=== PATIENT | male | born 1970 | race African-American/Black ===

== ENCOUNTER 2021-06-29 16:15 | Outpatient (REF) | payer OTHER, SELFPAY ==
--- NOTE | ~2021-06-29 | US_ITS ---
EXAMINATION: US RETROPERITONEAL LIMITED (RENAL ONLY) CLINICAL INFORMATION: Calculus of kidney. COMPARISON: Ultrasound renal cysts 02/05/2020 and 05/22/2019 TECHNIQUE: Real-time imaging of the kidneys. FINDINGS: RIGHT KIDNEY: 11.3 x 6.6 x 4.9 cm (SAG x AP x TRV). The kidney is normal in size, contour, and echogenicity. Renal cortical thickness is normal. There is an 8 x 6 x 6 mm echogenic area in the mid right kidney that is stable. Appearance is questionable for an angiomyolipoma. No calculi. No hydronephrosis. LEFT KIDNEY: 11.0 x 6.3 x 5.2 cm (SAG x AP x TRV). The kidney is normal in size, contour, and echogenicity. There is left renal cortical thinning or scarring. There is an adjacent 6 mm echogenic focus with twinkle artifact and more peripheral hypoechoic area questionable for stone versus cyst with wall calcification. No hydronephrosis. US/US renal BI IMPRESSION: Stable 8 x 6 x 6 mm echogenic area in the mid right kidney questionable for an angiomyolipoma. Question 6 mm left upper pole stone versus cyst with wall calcification. Cortical thinning or scarring in the upper pole of the left kidney..
== END 2021-06-29 16:16 | disposition home or self-care (01) ==
LOC: HO.US 16:15
PROVIDERS: PCP Internal Medicine; Visit Provider Urology
DX: N20.0 Calculus of kidney (principal)
CPT/HCPCS: 76775

== ENCOUNTER → 2021-07-28 08:31 | Outpatient (BNVA) | payer OTHER, SELFPAY | PROVIDERS: PCP Internal Medicine; Visit Provider Urology ==

== ENCOUNTER 2021-08-26 07:38 | Outpatient (REF) | payer OTHER, SELFPAY ==
[2021-08-26 10:20] LABS: MANUAL DIFF FLAG NO
[2021-08-26 10:25] LABS: Basophils Absolute Auto 0.1 X10*3/uL (0.0-0.2); Eosinophils Absolute Auto 0.3 X10*3/uL (0.0-0.4); Eosinophils Percent Auto 3.9 % (0-4); Hematocrit 46.5 % (42.0-52.0); Imm Gran Abs Auto 0.01 X10*3/uL (0.00-0.03); Imm Gran Pct Auto 0.1 % (0.0-0.4); Lymphocytes Absolute Auto 2.7 X10*3/uL (1.2-4.9); Lymphocytes Percent Auto 33.9 % (20-40); Mean Corpuscular HGB Conc 34.4 g/dl (31.0-36.0); Mean Corpuscular Hemoglobin 29.5 pg (27.0-33.0); Mean Corpuscular Volume 85.6 fL (80.0-98.0); Mean Platelet Volume 11.1 fL (9.4-12.4); Monocytes Absolute Auto 0.6 X10*3/uL (0.1-1.2); Monocytes Percent Auto 7.8 % (2-11); Neutrophils Absolute Auto 4.2 x10*3/uL (2.0-8.3); Neutrophils Percent Auto 53.3 % (45-73); Platelet Count 272 X10*3/uL (160-400); Red Blood Count 5.43 X10*6/uL (4.60-5.80); Red Cell Distribution Width 13.2 % (11.0-16.0); White Blood Count 7.9 X10*3/uL (4.8-10.8)
[2021-08-26 10:40] LABS: Appearance Urine CLEAR; Color Urine YELLOW; Glucose Urine UA NEG (NEG); Leukocyte Esterase Urine NEG (NEG); Nitrite Urine NEG (NEG); Urine Blood NEG (NEG); Urine Ketones NEG (NEG); Urine Protein NEG (NEG-TRACE)
[2021-08-26 10:47] LABS: Alanine Aminotransferase 61 U/L (0-40); Albumin Level 4.1 g/dL (3.5-5.0); Alkaline Phosphatase 59 U/L (39-117); Anion Gap 13 (12-20); Aspartate Amino Transferase 34 U/L (5-37); Bilirubin Total 0.6 mg/dL (0.0-1.0); Blood Urea Nitrogen 15 mg/dL (9-16); Calcium 9.4 mg/dL (8.4-10.2); Carbon Dioxide 29 mmol/L (22-29); Chloride 99 mmol/L (96-108); Cholesterol 158 mg/dL; Estimated Glomerular Filt Rate > 60; Glucose Fasting 92 mg/dL (60-99); HDL Cholesterol 41 mg/dL; LDL Cholesterol Calculated 101 mg/dl; Sodium 138 mmol/L (135-145); Total Protein 7.1 g/dL (6.5-8.0); Triglycerides 82 mg/dL
[2021-08-26 11:11] LABS: Prostate Specific Antigen 0.38 ng/mL (<0.05-4.0); TSH reflex Free T4 1.17 uIU/mL (0.32-4.0); Vitamin D 25-OH Total 11.3 ng/mL (>30)
== END 2021-08-26 07:39 | disposition home or self-care (01) ==
LOC: HO.10HDL 07:38
PROVIDERS: Visit Provider Internal Medicine
DX: Z00.00 Encounter for general adult medical examination without abnormal findings (principal); E55.9 Vitamin D deficiency, unspecified; I10 Essential (primary) hypertension; E66.9 Obesity, unspecified
CPT/HCPCS: 36415; 80053; 80061; 81003; 82306; 84153; 84443; 85025

== ENCOUNTER 2021-10-27 08:28 | Outpatient (REF) | payer OTHER, SELFPAY ==
[2021-10-27 09:06] LABS: Binax Internal Control QC Valid; Binax Now Covid-19 Ag Positive (Negative)
== END 2021-10-27 08:29 | disposition home or self-care (01) ==
LOC: HO.LAB 08:28
PROVIDERS: Visit Provider Internal Medicine
DX: Z20.822 Contact with and (suspected) exposure to COVID-19 (principal)
CPT/HCPCS: C9803

== ENCOUNTER → 2022-01-13 13:46 | Outpatient (BNVA) | payer OTHER, SELFPAY | PROVIDERS: PCP Internal Medicine; Referring Provider Internal Medicine; Visit Provider Physician Assistant | DX: Z13.89 Encounter for screening for other disorder (principal) ==

== ENCOUNTER 2022-07-13 12:34 | Outpatient (REF) | payer OTHER, SELFPAY ==
--- NOTE | ~2022-07-13 | US_ITS ---
EXAMINATION: US RETROPERITONEAL LIMITED (RENAL ONLY) CLINICAL INFORMATION: Calculus of kidney. COMPARISON: Ultrasound retroperitoneal limited (renal only) 06/29/2021 and 02/05/2020. X-ray abdomen KUB 06/08/2016 and 02/10/2016. TECHNIQUE: Real-time imaging of the kidneys. FINDINGS: RIGHT KIDNEY: 11.6 x 6.2 x 4.5 cm (SAG x AP x TRV). The kidney is normal in size, contour, and echogenicity. Renal cortical thickness is normal. No hydronephrosis. Upper pole 0.5 cm calculus. There is also a hyperechoic structure at the midpole measuring 0.8 cm, likely an angiomyolipoma. This is unchanged. LEFT KIDNEY: 11.2 x 6.4 x 4.8 cm (SAG x AP x TRV). The kidney is normal in size, contour, and echogenicity. Renal cortical thickness is normal. No focal parenchymal lesions or hydronephrosis. Upper pole 0.5 cm calculus. US/US renal BI IMPRESSION: Nonobstructing bilateral renal calculi. 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
== END 2022-07-13 12:35 | disposition home or self-care (01) ==
LOC: HO.US 12:34
PROVIDERS: PCP Internal Medicine; Visit Provider Urology
DX: N20.0 Calculus of kidney (principal)
CPT/HCPCS: 76775

== ENCOUNTER → 2022-10-20 08:57 | Outpatient (BNVA) | payer OTHER, SELFPAY | PROVIDERS: PCP Internal Medicine; Visit Provider Physician Assistant | DX: Z01.818 Encounter for other preprocedural examination (principal) ==

== ENCOUNTER 2023-01-03 08:25 | Day surgery (SDC) | payer OTHER, SELFPAY ==
[2022-09-30 11:26] VITALS: BMI 31.9
[2022-12-28 14:02] VITALS: BMI 31.1
--- NOTE | 2023-01-02 11:52 | HO.ANESPROP2 ---
Documented by User: Rama Tran NP 01/02/23 11:52 HPI - Anesthesia Eval Consult details Narrative: 52yo M for Colonoscopy PMFSH Active Problems Active Problems: All Active Problems (Updated 10/20/22 @ 10:15 by Starla Yanez PA-C) Annual physical exam (Acute) Colon cancer screening (Acute) Elevated alanine aminotransferase (ALT) level (Acute) Angiomyolipoma (Acute) Vitamin D deficiency (Acute) Depression (Acute) Insomnia (Acute) Renal stone (Acute) Obesity (BMI 30-39.9) (Acute) Benign essential hypertension (Acute) Hypertension (Acute) Past Medical History Medical History Benign essential hypertension Depression History of COVID-19 Hypertension Insomnia Obesity (BMI 30-39.9) Renal stone Vitamin D deficiency Family History Family History Mother Hypertension Father Hypertension Surgical History Surgical History History of inguinal hernia repair Hx of colonoscopy Hx of lithotripsy Social History Social History Housing: House Alcohol intake: never Patient Tobacco Use Status: Never used Tobacco Second Hand Smoke Exposure: No Use of substances other than those prescribed or required for medical reasons: No Are you DNR?: No Advance Directives: No Advance Directives Information Provided: Yes service: No Current occupational status: employed Current occupation: maintenance Cognitive needs: No Hearing needs: No Vision needs: No Meds Allergies Allergy/AdvReac Type Severity Reaction Status Date / Time No Known Allergies Allergy Verified 09/21/22 13:10 [No Known Allergies*] Home Medications Medication Instructions Recorded Confirmed Last Taken Type trazodone 50 mg tablet 1 tab PO BEDTIME PRN insomnia 05/24/22 09/21/22 Unknown History Exam Exam Date and Time: January 02, 2023 1152 Height,Weight and Vital Signs: Height 5 ft 7 in Weight 90.265 kg Assessment and Plan Assessment Anesthesia Assessment: Chart Reviewed Documented by User: Tyesha Laguna MD 01/03/23 10:38 [facility] Past Medical History Medical History Benign essential hypertension Depression History of COVID-19 Hypertension Insomnia Obesity (BMI 30-39.9) Renal stone Vitamin D deficiency Family History Family History Mother Hypertension Father Hypertension Family history of problems with anesthesia: No Surgical History Surgical History History of inguinal hernia repair Hx of colonoscopy Hx of lithotripsy History of Problems with Anesthesia: No Social History Social History Housing: House Alcohol intake: never Patient Tobacco Use Status: Never used Tobacco Second Hand Smoke Exposure: No Use of substances other than those prescribed or required for medical reasons: No Are you DNR?: No Advance Directives: No Advance Directives Information Provided: Yes service: No Current occupational status: employed Current occupation: maintenance Cognitive needs: No Hearing needs: No Vision needs: No Meds Allergies Allergy/AdvReac Type Severity Reaction Status Date / Time No Known Allergies Allergy Verified 09/21/22 13:10 [No Known Allergies*] Home Medications Medication Instructions Recorded Confirmed Last Taken Type trazodone 50 mg tablet 1 tab PO BEDTIME PRN insomnia 05/24/22 09/21/22 Unknown History Exam Airway Mallampati Class: II Neck ROM: Full Loose/Missing/Broken Teeth: No Heart: rr Lungs: cta Assessment and Plan Assessment Anesthesia Assessment: Anesthesia Plan Discussed Final Anesthetic Review Family History of Problems with Anesthesia: No History of Problems with Anesthesia: No NPO: Yes ASA Class: II Final Preanesthetic Review: No Changes in Pt Med Stat, Meds/Allgs Chart Reviewed, Consent Obtained/Reviewed and Anes Risks/Benef Reviewed Patient Risk: Low Procedure Risk: Low Anesthetic Plan Anesthetic Plan: MAC: Disposition: Standard PACU
[2023-01-03 09:28] VITALS: BP 133/89; PULSE 66; RESP 18; TEMP 36.6; O2SAT 96
--- NOTE | 2023-01-03 09:42 | MHC.SHP ---
Pre-Procedural Eval Section A Date of Service: 01/03/23 Section B Chief Complaint: screening Relevant Family History (Specify if Yes): No Relevant Social History: None Present Medications: see Short Stay Collaborative assessment Medical History: Significant History (Benign essential hypertension Depression History of COVID-19 Hypertension Insomnia Obesity (BMI 30-39.9) Renal stone Vitamin D deficiency) History of Previous Operations: Relevant previous surgery/procedure and date(s) (History of inguinal hernia repair Hx of colonoscopy Hx of lithotripsy) Allergies: Allergies Allergy/AdvReac Type Severity Reaction Status Date / Time No Known Allergies Allergy Verified 09/21/22 13:10 [No Known Allergies*] Review of Systems Sugical H&P ROS: Negative: Constitution, Cardiovascular, Respiratory, Neurological, Psychiatric, Hem-Onc, Allergic/Immunologic, Gastrointestinal, Genitourinary, Musculoskeletal, Integumentary, Endocrine and Eyes/Ears/Nose/Throat Exam Surgical H&P Exam: Normal: HEENT, Normal: Heart, Normal: Lungs, Normal: Extremities, Normal: Abdomen, Normal: Skin and Normal: Neurological Plan Diagnosis/Plan: Unchanged I have reviewed the history and physical and performed a pertinent physical examination on my patient. No changes have occurred unless specified. Time Spent With Patient Time: Total time managing care of this patient today ____ minutes.
[2023-01-03] MEDS: Lactated Ringers 1,000 ML 100 ML IVCONT (09:57)
--- NOTE | 2023-01-03 10:30 | W.PM.OPN ---
Operative Note Operative Note Date of Service: 01/03/23 Narrative: Operative Information Procedure Description: Colonoscopy Indication: screening Anesthesia: MAC COLONOSCOPY Instrument: Olympus variable stiffness pediatric scope 190L Colonoscopy Monitoring: Vital signs and clinical assessment, continuous EKG monitoring, Pulse oximetry, Carbon Dioxide monitoring and blood pressure monitoring were done throughout the procedure. Colon withdrawal time was 16 minutes. Procedure: The patient was placed in the left lateral decubitis position and pre-procedure medications were administered. After a digital rectal examination of the ano-rectum, the video colonoscope was inserted into the rectum and advanced through the colon to the cecum/TI. The colonoscope was slowly withdrawn in a retrograde panoramic fashion and the colon mucosa was carefully examined including a retroflexed view of the rectum. Findings and interventions are described below. Procedure Difficulty: easy Findings: Terminal Ileum-normal Cecum: 6-7 mm sessile polyp removed with cold forceps Ascending Colon: several diverticula seen, 4-5 mm sessile polyp removed with cold forceps Transverse Colon -normal Descending Colon: moderate diverticulosis. 6-8 mm sessile polyp removed with cold forceps. 15 mm sausage shaped sessile polyp raised wt eleview and injected with few cc of epinephhrine then removed with hot snare with edges ablated. x 2 clips applied for closure of defect and polyp retrieved with net Sigmoid Colon: moderate severe diverticulosis Rectum: Retroflexion with medium sized internal hemorrhoids, grade I Anorectum - normal Colon preparation: [place] Bowel Preparation Scale Right colon; 2 Transverse colon: 2 Left colon; 1-2 (0 = Unprepared colon segment with mucosa not seen due to solid stool that cannot be cleared. 1 = Portion of mucosa of the colon segment seen, but other areas of the colon segment not well seen due to staining, residual stool and/or opaque liquid. 2 = Minor amount of residual staining, small fragments of stool and/or opaque liquid, but mucosa of colon segment seen well. 3 = Entire mucosa of colon segment seen well with no residual staining, small fragments of stool or opaque liquid) Impression and Post Procedure Diagnosis: polyps internal hemorrhoids diverticular disease Plan: High fiber diet leaflet Avoid straining at stool, epsom salts and sitz bath, anusol supps or cream Repeat Colonoscopy in 1-2 years or earlier if clinically indicated Above findings were reviewed with the patient and relevant handouts were provided if indicated.
[2023-01-03 10:43] VITALS: BP 104/69; PULSE 84; RESP 18; TEMP 36.1; O2SAT 94
[2023-01-03 10:58] VITALS: BP 109/79; PULSE 78; RESP 16; O2SAT 96
[2023-01-03 11:13] VITALS: BP 119/73; PULSE 55; RESP 16; TEMP 36.4; O2SAT 96
--- NOTE | 2023-01-03 13:31 | HO.ANESPROP2 ---
HPI - Anesthesia Eval Consult details Narrative: sreening PMFSH Active Problems Active Problems: All Active Problems (Updated 10/20/22 @ 10:15 by Starla Yanez PA-C) Annual physical exam (Acute) Colon cancer screening (Acute) Elevated alanine aminotransferase (ALT) level (Acute) Angiomyolipoma (Acute) Vitamin D deficiency (Acute) Depression (Acute) Insomnia (Acute) Renal stone (Acute) Obesity (BMI 30-39.9) (Acute) Benign essential hypertension (Acute) Hypertension (Acute) Past Medical History Medical History Benign essential hypertension Depression History of COVID-19 Hypertension Insomnia Obesity (BMI 30-39.9) Renal stone Vitamin D deficiency Family History Family History Mother Hypertension Father Hypertension Family history of problems with anesthesia: No Surgical History Surgical History History of inguinal hernia repair Hx of colonoscopy Hx of lithotripsy History of Problems with Anesthesia: No Social History Social History Housing: House Alcohol intake: never Patient Tobacco Use Status: Never used Tobacco Second Hand Smoke Exposure: No service: No Current occupational status: employed Current occupation: maintenance Cognitive needs: No Hearing needs: No Vision needs: No Meds Allergies Allergy/AdvReac Type Severity Reaction Status Date / Time No Known Allergies Allergy Verified 09/21/22 13:10 [No Known Allergies*] Home Medications Medication Instructions Recorded Confirmed Last Taken Type trazodone 50 mg tablet 1 tab PO BEDTIME PRN insomnia 05/24/22 09/21/22 Unknown History Exam Exam Date and Time: January 03, 2023 1331 Height,Weight and Vital Signs: Height 5 ft 7 in Weight 90.265 kg Last Vital Signs Temp 97.6 F 01/03/23 11:13 Pulse 55 01/03/23 11:13 Resp 16 01/03/23 11:13 BP 119/73 01/03/23 11:13 Pulse Ox 96 01/03/23 11:13 O2 Del Method 01/03/23 11:13 Airway Mallampati Class: II TM Dist: >3cm Neck ROM: Full Heart: rr Lungs: cta Assessment and Plan Final Anesthetic Review Family History of Problems with Anesthesia: No History of Problems with Anesthesia: No NPO: Yes ASA Class: I and II Final Preanesthetic Review: No Changes in Pt Med Stat, Meds/Allgs Chart Reviewed, Consent Obtained/Reviewed and Anes Risks/Benef Reviewed Patient Risk: Low Procedure Risk: Low Anesthetic Plan Anesthetic Plan: MAC: Disposition: Standard PACU
== END 2023-01-03 12:10 | disposition home or self-care (01) ==
PROVIDERS: PCP Internal Medicine; Visit Provider Internal Medicine Gastroenterology
PROC: 0DJD8ZZ Inspection of Lower Intestinal Tract, Via Natural or Artificial Opening Endoscopic (ICD-10-PCS; CPT 45378; principal; 2023-01-03 09:50)
DX: Z12.11 Encounter for screening for malignant neoplasm of colon (principal); D12.0 Benign neoplasm of cecum; D12.2 Benign neoplasm of ascending colon; D12.4 Benign neoplasm of descending colon; K57.30 Diverticulosis of large intestine without perforation or abscess without bleeding; K64.0 First degree hemorrhoids; I10 Essential (primary) hypertension; F32.A Depression, unspecified; E66.9 Obesity, unspecified; Z68.31 Body mass index [BMI] 31.0-31.9, adult; E55.9 Vitamin D deficiency, unspecified; G47.00 Insomnia, unspecified; Z79.899 Other long term (current) drug therapy; Z87.442 Personal history of urinary calculi
CPT/HCPCS: 45385; 45380; 45381; 88305; J0171

== ENCOUNTER 2023-02-25 10:33 | Emergency (ER) | payer OTHER, SELFPAY ==
--- NOTE | ~2023-02-25 | XR_ITS ---
EXAMINATION: XR CHEST CLINICAL INFORMATION: Chest pain COMPARISON: None available. TECHNIQUE: Frontal view of the chest was obtained. FINDINGS: The cardiac and mediastinal contours are stable. There is increased density at the left lung apex. This may be related to superimposition of bony structures, the left anterior first, posterior third ribs and left clavicle. The lungs are otherwise clear. No pleural effusion or pneumothorax. Bony structures are unremarkable. XR/XR chest 1V IMPRESSION: Increased density at the left lung apex, question related to overlapping bony structures. Follow-up apical lordotic view of the chest or chest CT recommended.
--- NOTE | 2023-02-25 07:29 | ECG_ITS ---
Test Reason : repeat Blood Pressure : / mmHG Vent. Rate : 047 BPM Atrial Rate : 047 BPM P-R Int : 144 ms QRS Dur : 076 ms QT Int : 404 ms P-R-T Axes : -19 -28 -28 degrees QTc Int : 357 ms Sinus bradycardia Minimal voltage criteria for LVH, may be normal variant ( R in aVL ) Nonspecific T wave abnormality Abnormal ECG When compared with ECG of 25-FEB-2023 10:35, Nonspecific T wave abnormality now evident in Lateral leads Referred By: Booker Chong Electronically Signed By:Erik Wilson
--- NOTE | 2023-02-25 10:35 | ECG_ITS ---
Test Reason : chest pain Blood Pressure : / mmHG Vent. Rate : 054 BPM Atrial Rate : 054 BPM P-R Int : 154 ms QRS Dur : 086 ms QT Int : 408 ms P-R-T Axes : 014 -24 -17 degrees QTc Int : 386 ms Sinus bradycardia Otherwise normal ECG No previous ECGs available Referred By: Generic ED Physician Electronically Signed By:ERIN STOVER
[2023-02-25 10:42] VITALS: BP 151/85; PULSE 56; RESP 18; TEMP 36.6; O2SAT 98; BMI 28.2
[2023-02-25 11:18] VITALS: PULSE 57
--- NOTE | 2023-02-25 11:30 | ED_ITS ---
HPI - Chest Pain General Chief Complaint: Chest Pain Stated Complaint: chest pain Time Seen by Provider: 02/25/23 10:53 Source: patient Mode of arrival: ambulatory Limitations: no limitations History of Present Illness HPI narrative: 52-year-old male came in for evaluation of chest pain. Chest pain started since yesterday, had 2 episode of chest pain each 1 lasts 5 minutes yesterday which is not exertional related, pain was described as dull aching pain to the left side of the chest with no radiation, no associated symptoms of SOB, today patient had very mild pension pain to the left side of the chest with no radiation no other associated symptoms. Related Data Home Medications Medication Instructions Recorded Confirmed trazodone 50 mg tablet 1 tab PO BEDTIME PRN insomnia 05/24/22 09/21/22 Previous Rx's Medication Instructions Recorded cholecalciferol (vitamin D3) 50 50 mcg PO DAILY 90 days #90 caps 09/29/21 mcg (2,000 unit) capsule bisacodyl 5 mg tablet,delayed 10 mg PO ONCE colonoscopy prep 1 10/20/22 release (Dulcolax (bisacodyl)) day #2 tabs polyethylene glycol 3350 17 238 g PO ONCE 1 day #238 grams 10/20/22 gram/dose oral powder (Miralax) chlorthalidone 50 mg tablet 50 mg PO QAM 3 months #30 tabs 01/22/23 Allergies Allergy/AdvReac Type Severity Reaction Status Date / Time No Known Allergies Allergy Verified 09/21/22 13:10 [No Known Allergies*] Review of Systems Review of Systems: All other systems are reviewed and are negative Constitutional: Reports as per HPI and Reports no additional constitutional complaints Eyes: Reports as per HPI and Reports no additional eye complaints Reports system reviewed and no additional complaints, except as documented Cardiovascular: Reports as per HPI and Reports no additional cardiovascular complaints Respiratory: Reports as per HPI and Reports no additional respiratory complaints Gastrointestinal: Reports as per HPI and Reports no additional gastrointestinal complaints Genitourinary: Reports no additional female genitourinary complaints Musculoskeletal: Reports no additional musculoskeletal complaints Skin/Breast: Reports system reviewed and no additional complaints, except as docu Psychiatric: Reports no additional psychiatric complaints Endocrine: Reports no additional endocrine complaints Hematologic/Lymphatic: Reports no additional hematologic/lymphatic complaints Allergic/Immunologic: Reports no additional allergic/immunologic complaints Reports system reviewed and no additional complaints, except as documented and Reports Abnormal speech present FORMERLY [facility], [facility] Past Medical History Medical History Benign essential hypertension Depression History of COVID-19 Hypertension Insomnia Obesity (BMI 30-39.9) Renal stone Vitamin D deficiency Surgical History History of inguinal hernia repair Hx of colonoscopy Hx of lithotripsy Family History Family History Mother Hypertension Father Hypertension Social History Social History Housing: House Alcohol intake: never Patient Tobacco Use Status: Never used Tobacco Smoked in Last 30 Days: No Second Hand Smoke Exposure: No Use of substances other than those prescribed or required for medical reasons: No Advance Directives: No Advance Directives Information Provided: Yes service: No Current occupational status: employed Current occupation: maintenance Cognitive needs: No Hearing needs: No Vision needs: No Physical Exam Vital Signs: Vital Signs: Last Vital Signs Temp 97.6 F 02/25/23 13:31 Pulse 51 02/25/23 13:31 Resp 15 02/25/23 13:31 BP 138/82 02/25/23 13:31 Pulse Ox 98 02/25/23 13:31 O2 Del Method Room Air 02/25/23 13:31 BMI result Body Mass Index 28.2 Vital signs have been reviewed as appeared to be correct. Blood pressure normal. Heart rate normal. Respiration rate normal. Temperature normal. Oxygen saturation normal. Appearance: Alert. Oriented X3. No acute distress. Head: Normal external exam. Normocephalic. Atraumatic. No Walker signs noted. No raccoon eyes noted Eyes: PERRLA. EOMI. Conjunctiva and sclera normal. Eyelids normal. ENT: TM's Normal. Pharynx normal. Uvula midline. Moist mucous membranes. No trismus noted. No drooling noted. No muffled voice noted. Neck: Normal inspection. Neck supple. FROM. No adenopathy. Thyroid Normal. No meningeal signs. No neck mass noted. CVS: Normal heart rate and rhythm. Heart sound normal. No murmurs noted. Pulses normal throughout. Respiratory: No respiratory distress. Painless inspiration. Breath sounds normal. No wheezes/rales/rhonchi noted. Chest nontender. No accessory muscle usage noted or decreased air movement noted. Abdomen: Soft and nontender. Bowel sounds normal in all 4 quadrants. No distention noted. No organomegaly noted. No visible injury noted. Back: No CVA tenderness. Full range of motion noted. Skin: Skin warm and dry. Normal skin color. Normal skin turgor. No rashes/lesions/lacerations noted. Extremities: No lower extremity edema. Extremities exhibit normal range of motion. Extremities nontender. Neuro: Oriented X 3. Cranial nerve exam: II-XII are grossly intact No motor deficit. No sensory deficit. Reflexes normal. Course Course Course Narrative: Intermittent chest pain since yesterday improving today, unremarkable labs, EKG is unremarkable. Will discharge to follow-up with PCP. Patient is bradycardic but patient is asymptomatic. Medical Decision Making Differential Diagnosis Differential Diagnoses: The differential diagnosis associated with the presentation includes (ACS, electrolyte abnormalities, anemia, myofascial pain, pneumonia, pneumothorax.) Admission/Observation Consideration of admission/observation: Escalation of care including admission/observation considered Lab Data MDM Lab Attestation statement: I reviewed the patient's lab results. 02/25/23 11:24 02/25/23 11:24 Labs: Lab Results 02/25/23 02/25/23 02/25/23 Range/Units 11:14 11:24 11:24 WBC 8.8 (4.8-10.8) X10*3/uL RBC 5.01 (4.60-5.80) X10*6/uL Hgb 15.0 (14.0-18.0) g/dl Hct 43.7 (42.0-52.0) % MCV 87.2 (80.0-98.0) fL MCH 29.9 (27.0-33.0) pg MCHC 34.3 (31.0-36.0) g/dl RDW 13.2 (11.0-16.0) % Plt Count 258 (160-400) X10*3/uL MPV 10.5 (9.4-12.4) fL Immature Gran % (Auto) 0.2 (0.0-0.4) % Neut % (Auto) 61.0 (45-73) % Lymph % (Auto) 25.6 (20-40) % [place] % (Auto) 8.9 (2-11) % Eos % (Auto) 3.6 (0-4) % Baso % (Auto) 0.7 (0-2) % Lymph # (Auto) 2.3 (1.2-4.9) X10*3/uL [place] # (Auto) 0.8 (0.1-1.2) X10*3/uL Eos # (Auto) 0.3 (0.0-0.4) X10*3/uL Baso # (Auto) 0.1 (0.0-0.2) X10*3/uL Abs Immat Gran (auto) 0.02 (0.00-0.03) X10*3/uL Absolute Neuts (auto) 5.4 (2.0-8.3) x10*3/uL Absolute Nucleated RBC 0.000 (0.0-0.012) X10*3/uL Nucleated RBC % (auto) 0.0 (0.0-0.2) /100WBC Sodium 139 (135-145) mmol/L Potassium 3.8 D (3.3-5.1) mmol/L Chloride 107 (96-108) mmol/L Carbon Dioxide 27 (22-29) mmol/L Anion Gap 9 L (12-20) BUN 12 (9-16) mg/dL Creatinine 0.84 (0.5-1.4) mg/dL Estim Creat Clear Calc 104.2 Estimated GFR > 60 Random Glucose 83 (60-115) mg/dL Calcium 9.3 (8.4-10.2) mg/dL Total Bilirubin (0.0-1.0) mg/dL Direct Bilirubin (0.0-0.5) mg/dL AST (5-37) U/L ALT (0-40) U/L Alkaline Phosphatase (39-117) U/L Troponin I High Sens (<3.5-35.0) ng/L Total Protein (6.5-8.0) g/dL Albumin (3.5-5.0) g/dL Lipase (8-78) U/L Urine Color Yellow Urine Appearance Clear Urine pH 7.0 (5.0-9.0) Ur Specific [place] 1.015 (1.005-1.025) Urine Protein Negative (Neg-Trace) mg/dL Urine Glucose (UA) Negative (Negative) mg/dL Urine Ketones Negative (Negative) mg/dL Urine Blood Negative (Negative) Urine Nitrite Negative (Negative) Ur Leukocyte Esterase Trace H (Negative) Urine RBC 0-2 (0-2) /HPF Urine WBC 0-5 (0-5) /HPF Ur Squamous Epith Cells 0-2 (0-2) /HPF Urine Bacteria None Seen (None Seen) Hyaline Casts 0-2 (0-2) /LPF 02/25/23 02/25/23 Range/Units 11:24 11:24 WBC (4.8-10.8) X10*3/uL RBC (4.60-5.80) X10*6/uL Hgb (14.0-18.0) g/dl Hct (42.0-52.0) % MCV (80.0-98.0) fL MCH (27.0-33.0) pg MCHC (31.0-36.0) g/dl RDW (11.0-16.0) % Plt Count (160-400) X10*3/uL MPV (9.4-12.4) fL Immature Gran % (Auto) (0.0-0.4) % Neut % (Auto) (45-73) % Lymph % (Auto) (20-40) % [place] % (Auto) (2-11) % Eos % (Auto) (0-4) % Baso % (Auto) (0-2) % Lymph # (Auto) (1.2-4.9) X10*3/uL [place] # (Auto) (0.1-1.2) X10*3/uL Eos # (Auto) (0.0-0.4) X10*3/uL Baso # (Auto) (0.0-0.2) X10*3/uL Abs Immat Gran (auto) (0.00-0.03) X10*3/uL Absolute Neuts (auto) (2.0-8.3) x10*3/uL Absolute Nucleated RBC (0.0-0.012) X10*3/uL Nucleated RBC % (auto) (0.0-0.2) /100WBC Sodium (135-145) mmol/L Potassium (3.3-5.1) mmol/L Chloride (96-108) mmol/L Carbon Dioxide (22-29) mmol/L Anion Gap (12-20) BUN (9-16) mg/dL Creatinine (0.5-1.4) mg/dL Estim Creat Clear Calc Estimated GFR Random Glucose (60-115) mg/dL Calcium (8.4-10.2) mg/dL Total Bilirubin 0.6 (0.0-1.0) mg/dL Direct Bilirubin 0.2 (0.0-0.5) mg/dL AST 25 (5-37) U/L ALT 39 (0-40) U/L Alkaline Phosphatase 59 (39-117) U/L Troponin I High Sens < 2.7 (<3.5-35.0) ng/L Total Protein 6.1 L (6.5-8.0) g/dL Albumin 3.7 (3.5-5.0) g/dL Lipase 31 (8-78) U/L Urine Color Urine Appearance Urine pH (5.0-9.0) Ur Specific [place] (1.005-1.025) Urine Protein (Neg-Trace) mg/dL Urine Glucose (UA) (Negative) mg/dL Urine Ketones (Negative) mg/dL Urine Blood (Negative) Urine Nitrite (Negative) Ur Leukocyte Esterase (Negative) Urine RBC (0-2) /HPF Urine WBC (0-5) /HPF Ur Squamous Epith Cells (0-2) /HPF Urine Bacteria (None Seen) Hyaline Casts (0-2) /LPF Independent Interpretation I performed an independent interpretation of an: Plain X-Ray (No acute intrathoracic pathology) Radiology Impression Discussion of test interpretation with radiology: I have reviewed the radiologist's reading. Scores Heart Score History: -0- slightly suspicious ECG: -0- normal Age: -1- >45 - <65 Risk factory: -1- 1 or 2 risk factors Troponin: -0- < or = normal limit Score: 2 Risk: 1.7% Discharge Plan Discharge Clinical Impression: Chest pain, Bradycardia Patient Disposition: Home, Self-Care Instructions: Chest Pain (ED) Prescriptions: No Action chlorthalidone 50 mg tablet 50 mg PO QAM 90 Days Qty: 30 0RF trazodone 50 mg tablet 1 tab PO BEDTIME PRN (Reason: insomnia) cholecalciferol (vitamin D3) 50 mcg (2,000 unit) capsule 50 mcg PO DAILY 90 Days Qty: 90 3RF bisacodyl [Dulcolax (bisacodyl)] 5 mg tablet,delayed release (DR/EC) 10 mg PO ONCE 1 Days Qty: 2 0RF Rx Instructions: Take 2 tablets by mouth at 12:00pm the day before your procedure. polyethylene glycol 3350 [Miralax] 17 gram/dose powder 238 g PO ONCE 1 Days Qty: 238 0RF Rx Instructions: Take as directed by mouth the day before your procedure. Referrals: Harry Cooper MD [Primary Care Provider] -
[2023-02-25 11:33] LABS: MANUAL DIFF FLAG NO
[2023-02-25 11:35] LABS: Basophils Absolute Auto 0.1 X10*3/uL (0.0-0.2); Basophils Percent Auto 0.7 % (0-2); Eosinophils Absolute Auto 0.3 X10*3/uL (0.0-0.4); Eosinophils Percent Auto 3.6 % (0-4); Hematocrit 43.7 % (42.0-52.0); Imm Gran Abs Auto 0.02 X10*3/uL (0.00-0.03); Imm Gran Pct Auto 0.2 % (0.0-0.4); Lymphocytes Absolute Auto 2.3 X10*3/uL (1.2-4.9); Lymphocytes Percent Auto 25.6 % (20-40); Mean Corpuscular HGB Conc 34.3 g/dl (31.0-36.0); Mean Corpuscular Hemoglobin 29.9 pg (27.0-33.0); Mean Corpuscular Volume 87.2 fL (80.0-98.0); Mean Platelet Volume 10.5 fL (9.4-12.4); Monocytes Absolute Auto 0.8 X10*3/uL (0.1-1.2); Monocytes Percent Auto 8.9 % (2-11); Neutrophils Absolute Auto 5.4 x10*3/uL (2.0-8.3); Platelet Count 258 X10*3/uL (160-400); Red Blood Count 5.01 X10*6/uL (4.60-5.80); Red Cell Distribution Width 13.2 % (11.0-16.0); White Blood Count 8.8 X10*3/uL (4.8-10.8)
[2023-02-25 11:44] LABS: Appearance Urine Clear; Color Urine Yellow; Glucose Urine UA Negative (Negative); Leukocyte Esterase Urine Trace (Negative); Nitrite Urine Negative (Negative); Specific Gravity - Urine 1.015 (1.005-1.025); UMIC TRIGGER UACC YES; Urine Blood Negative (Negative); Urine Ketones Negative (Negative); Urine Protein Negative (Neg-Trace)
[2023-02-25 11:49] LABS: Anion Gap 9 (12-20); Blood Urea Nitrogen 12 mg/dL (9-16); Calcium 9.3 mg/dL (8.4-10.2); Carbon Dioxide 27 mmol/L (22-29); Chloride 107 mmol/L (96-108); Creatinine Clr Calc Pharmacy 104.2; Estimated Glomerular Filt Rate > 60; Glucose Random 83 mg/dL (60-115); Potassium 3.8 mmol/L (3.3-5.1); Sodium 139 mmol/L (135-145)
[2023-02-25 11:50] LABS: Alanine Aminotransferase 39 U/L (0-40); Albumin Level 3.7 g/dL (3.5-5.0); Alkaline Phosphatase 59 U/L (39-117); Aspartate Amino Transferase 25 U/L (5-37); Bilirubin Direct 0.2 mg/dL (0.0-0.5); Bilirubin Total 0.6 mg/dL (0.0-1.0); Lipase 31 U/L (8-78); Total Protein 6.1 g/dL (6.5-8.0)
[2023-02-25 11:52] LABS: Bacteria Urine None Seen (None Seen); Hyaline Casts Urine 0-2 /LPF (0-2); RBC Urine 0-2 /HPF (0-2); Squamous Epithelial Cell Urine 0-2 /HPF (0-2); WBC Urine 0-5 /HPF (0-5)
[2023-02-25 12:00] LABS: Troponin-I High Sensitivity < 2.7 ng/L (<3.5-35.0)
[2023-02-25 13:31] VITALS: BP 138/82; PULSE 51; RESP 15; TEMP 36.4; O2SAT 98
== END 2023-02-25 15:18 | disposition home or self-care (01) ==
PROVIDERS: Emergency Provider Emergency Medicine; PCP Internal Medicine
DX: R07.9 Chest pain, unspecified (principal); R00.1 Bradycardia, unspecified; I10 Essential (primary) hypertension; Z79.899 Other long term (current) drug therapy
CPT/HCPCS: 36415; 71045; 80048; 80076; 81001; 83690; 84484; 85025; 93005; 99283; 99285

== ENCOUNTER 2023-06-07 20:51 | Emergency (ER) | payer OTHER, SELFPAY | END 2023-06-07 22:09 | disposition left against medical advice (07) | PROVIDERS: Emergency Provider Emergency Medicine; PCP Internal Medicine | DX: M79.602 Pain in left arm (principal) ==

== ENCOUNTER 2023-06-19 20:48 | Emergency (ER) | payer OTHER, SELFPAY ==
--- NOTE | 2023-06-19 | ECG_ITS ---
Test Reason : cp Blood Pressure : / mmHG Vent. Rate : 068 BPM Atrial Rate : 068 BPM P-R Int : 150 ms QRS Dur : 084 ms QT Int : 410 ms P-R-T Axes : 024 -29 -20 degrees QTc Int : 435 ms Normal sinus rhythm Minimal voltage criteria for LVH, may be normal variant ( R in aVL ) Septal infarct , age undetermined Abnormal ECG When compared with ECG of 25-FEB-2023 14:40, Septal infarct is now Present T wave inversion no longer evident in Anterior leads QT has lengthened Referred By: Generic ED Physician Electronically Signed By:MARY ELLEN GUTIERREZ
--- NOTE | ~2023-06-19 | XR_ITS ---
EXAMINATION: XR CHEST CLINICAL INFORMATION: Chest pain. COMPARISON: 12/26/2022 TECHNIQUE: 2 views of the chest were obtained. FINDINGS: The cardiomediastinal silhouette is stable. Minimal left perihilar/upper lung field scarring is again seen. There is no focal lung consolidation or evidence for significant pleural effusion. XR/XR chest 2V IMPRESSION: No active cardiopulmonary disease. No significant interval change
[2023-06-19 20:53] VITALS: BP 182/113; PULSE 65; RESP 18; TEMP 36.8; O2SAT 97; BMI 29.0
--- NOTE | 2023-06-19 20:53 | ED.GENADULT ---
[facility] - General Adult General Chief complaint: Chest Pain Stated complaint: Chest Pain Time Seen by Provider: 06/20/23 00:05 Source: patient Mode of arrival: ambulatory History of Present Illness HPI narrative: 53-year-old male without significant past medical history and denies any use of alcohol/drugs and denies any smoking, but does report that he has high blood pressure and has been off of his medication for 4 days. Patient states that he was at the gym working out and afterwards began experiencing chest pressure not associated with deep inspiration or movement and denies any associated nausea/dizziness/shortness of breath/diaphoresis. Patient denies that the pain radiates. Related Data Home Medications Medication Instructions Recorded Confirmed trazodone 50 mg tablet 1 tab PO BEDTIME PRN insomnia 05/24/22 09/21/22 Previous Rx's Medication Instructions Recorded cholecalciferol (vitamin D3) 50 50 mcg PO DAILY 90 days #90 caps 09/29/21 mcg (2,000 unit) capsule bisacodyl 5 mg tablet,delayed 10 mg PO ONCE colonoscopy prep 1 10/20/22 release (Dulcolax (bisacodyl)) day #2 tabs polyethylene glycol 3350 17 238 g PO ONCE 1 day #238 grams 10/20/22 gram/dose oral powder (Miralax) chlorthalidone 50 mg tablet 50 mg PO QAM 3 months #30 tabs 04/15/23 Allergies Allergy/AdvReac Type Severity Reaction Status Date / Time No Known Allergies Allergy Verified 06/19/23 20:56 [No Known Allergies*] Review of Systems Review of Systems: Pertinent positives and negatives as stated in HPI [facility] Past Medical History Source: nursing notes reviewed Medical History Benign essential hypertension Depression History of COVID-19 Hypertension Insomnia Obesity (BMI 30-39.9) Renal stone Vitamin D deficiency Surgical History History of inguinal hernia repair Hx of colonoscopy Hx of lithotripsy Family History Family History Mother Hypertension Father Hypertension Social History Social History Housing: House Alcohol intake: never Patient Tobacco Use Status: Never used Tobacco Smoked in Last 30 Days: No Second Hand Smoke Exposure: No Advance Directives: No Advance Directives Information Provided: Yes service: No Current occupational status: employed Current occupation: maintenance Cognitive needs: No Hearing needs: No Vision needs: No Physical Exam ED Vital Signs: Vital Signs - 24 hr 06/19/23 20:53 06/20/23 00:11 06/20/23 04:00 Temperature 98.2 F 97.8 F Pulse Rate 65 54 48 L Respiratory Rate 18 18 16 Blood Pressure 182/113 H 161/92 H 141/93 H Pulse Oximetry 97 98 96 Oxygen Delivery Method Room Air Room Air Room Air BMI result Body Mass Index 30.0 VITAL SIGNS: Reviewed. GENERAL: Well developed, well nourished, in no acute distress. HEAD: Normocephalic/atraumatic EYES: PERRLA, EOMI EARS: Ext canals without abnormality NOSE: Nares patent bilateral OROPHARYNX: no oral lesions noted, posterior pharynx clear NECK: Supple, no adenopathy LUNGS: Normal breath sounds. No adventitious sounds or accessory muscle use. SpO2<98> CARDIOVASCULAR: Regular rate and rhythm without noted murmurs ABDOMEN: Soft, non-tender, non-distended with bowel sounds. MUSCULOSKELETAL: No tenderness, deformities, or effusions noted on gross inspection. EXTREMITIES: No cyanosis, clubbing or edema. SKIN: Inspection of the skin reveals no rashes NEUROLOGIC: Alert and oriented x 4. Strength and sensation to light touch were grossly intact x 4. Course Course Course Narrative: This is a rapid medical exam: Additional HPI, ROS, PE not included below will be deferred to primary provider. Patient is a 53-year-old male with history of HTN presenting to the emergency department with complaint of chest pain since around 3:00 p.m. after working out at the gym. Also complains of pressure in chest. States he feels as though his blood pressure is high. Reports mild headache, denies vision changes. BP 182/113 in triage, states he is not on any BP medications. Plan: EKG, labs, CXR Medications Administered Generic Name Dose Route Start Last Admin Trade Name Freq PRN Reason Stop Dose Admin Heparin Sodium/Sodium Chloride 25,000 unit in 250 mls @ 0 mls/hr 06/20/23 03:30 06/20/23 04:13 Heparin Sodium,Porcine/1/2ns IVCONT 11.87 units/kg/hr .Q0M CLIFTON 10 mls/hr Administration Protocol Per Protocol Discontinued Medications Generic Name Dose Route Start Last Admin Trade Name Hillary PRN Reason Stop Dose Admin Aspirin 324 mg 06/20/23 03:25 06/20/23 03:36 Aspirin 81 Mg Tab.Chew PO 06/20/23 03:26 324 mg ONCE ONE Administration Ticagrelor 180 mg 06/20/23 03:25 06/20/23 03:36 Ticagrelor 90 Mg Tablet PO 06/20/23 03:26 180 mg ONCE ONE Administration Medical Decision Making Medical Decision Making MDM Narrative: 53-year-old male with history and clinical presentation, DDX: Musculoskeletal, angina, ACS, less likely viral syndrome or pneumonia. I reviewed all investigations and hematologic indices are grossly within normal limits, there is no leukocytosis or left shift, no anemia or thrombocytopenia. Chemistry indices are negative for ABDIFATAH and electrolyte as well as liver enzymes are without abnormalities, initial high sensitivity troponin is detectable, however in the setting of uncontrolled hypertension I do feel that there may be a component of leak from that although patient does still express chest pressure but otherwise asymptomatic. Will repeat the troponin. Chest x-ray without infiltrate and otherwise my interpretation is in agreement with radiology's impression. EKG negative for STEMI. 0305: I received a call from lab and reports that patient has high sensitivity troponin is 351.8. 0307: Reach out to Dr. Wilson. 0309: Repeat EKG demonstrates some T-wave abnormalities within the anterolateral leads, will discuss this with Dr. Wilson 0323: Cardiology recommends discussion with interventional at [facility], they have been contacted. Also recommend aspirin, Brilinta, heparin. 0406: Still no contact from [facility]. 0418: Dr. Magdalena Curry called and accepts admission as a documentum consultant to the cardiac telemetry floor and agrees with aspirin/Brilinta/heparin. 0502: I discussed case with [employer] hospitalist Jed at [facility]. Differential Diagnosis Differential Diagnoses: The differential diagnosis associated with the presentation includes Please see the discussion above Admission/Observation Consideration of admission/observation: Escalation of care including admission/observation considered Please see the discussion above Consult Healthcare Provider Management of the patient was discussed with: Operating System Designer Please see the discussion above Lab Data [facility] Lab Attestation statement: I reviewed the patient's lab results. Please see the discussion above 06/19/23 20:59 06/19/23 20:59 Labs: Lab Results 06/19/23 06/19/23 06/19/23 Range/Units 20:59 20:59 20:59 WBC 9.4 (4.8-10.8) X10*3/uL RBC 5.31 (4.60-5.80) X10*6/uL Hgb 15.8 (14.0-18.0) g/dl Hct 46.2 (42.0-52.0) % MCV 87.0 (80.0-98.0) fL MCH 29.8 (27.0-33.0) pg MCHC 34.2 (31.0-36.0) g/dl RDW 13.1 (11.0-16.0) % Plt Count 273 (160-400) X10*3/uL MPV 10.4 (9.4-12.4) fL Absolute Nucleated RBC 0.000 (0.0-0.012) X10*3/uL Nucleated RBC % (auto) 0.0 (0.0-0.2) /100WBC PT (11.1-13.3) SEC INR (0.9-1.1) APTT (26.0-36.4) SEC Sodium 139 (135-145) mmol/L Potassium 4.1 (3.3-5.1) mmol/L Chloride 104 (96-108) mmol/L Carbon Dioxide 28 (22-29) mmol/L Anion Gap 11 L (12-20) BUN 17 H (9-16) mg/dL Creatinine 0.87 (0.5-1.4) mg/dL Estim Creat Clear Calc 100.7 Estimated GFR > 60 Random Glucose 106 (60-115) mg/dL Calcium 9.9 D (8.4-10.2) mg/dL Total Bilirubin 0.6 (0.0-1.0) mg/dL AST 25 (5-37) U/L ALT 27 (0-40) U/L Alkaline Phosphatase 75 (39-117) U/L Troponin I High Sens 17.9 D (<3.5-35.0) ng/L Total Protein 7.3 (6.5-8.0) g/dL Albumin 4.2 (3.5-5.0) g/dL 06/20/23 06/20/23 Range/Units 01:02 03:26 WBC (4.8-10.8) X10*3/uL RBC (4.60-5.80) X10*6/uL Hgb (14.0-18.0) g/dl Hct (42.0-52.0) % MCV (80.0-98.0) fL MCH (27.0-33.0) pg MCHC (31.0-36.0) g/dl RDW (11.0-16.0) % Plt Count (160-400) X10*3/uL MPV (9.4-12.4) fL Absolute Nucleated RBC (0.0-0.012) X10*3/uL Nucleated RBC % (auto) (0.0-0.2) /100WBC PT 11.3 (11.1-13.3) SEC INR 0.9 (0.9-1.1) APTT 34.6 (26.0-36.4) SEC Sodium (135-145) mmol/L Potassium (3.3-5.1) mmol/L Chloride (96-108) mmol/L Carbon Dioxide (22-29) mmol/L Anion Gap (12-20) BUN (9-16) mg/dL Creatinine (0.5-1.4) mg/dL Estim Creat Clear Calc Estimated GFR Random Glucose (60-115) mg/dL Calcium (8.4-10.2) mg/dL Total Bilirubin (0.0-1.0) mg/dL AST (5-37) U/L ALT (0-40) U/L Alkaline Phosphatase (39-117) U/L Troponin I High Sens 351.8 H* D (<3.5-35.0) ng/L Total Protein (6.5-8.0) g/dL Albumin (3.5-5.0) g/dL Independent Interpretation I performed an independent interpretation of an: EKG Interpretation: 2050: Normal sinus rhythm, HR-68, no STEMI, AK/QRS/QTC is within normal limits. 308: Sinus bradycardia, HR -52, no STEMI, however anterolateral leads with some Wellens type morphology, AK/QRS/QTC are within normal limits. Radiology Impression Discussion of test interpretation with radiology: I have reviewed the radiologist's reading. Radiologist Impression: Please see the discussion above Chronic Conditions Patient?s care impacted by: Hypertension Critical Care Time Critical Care Time Critical Care Time: Yes Total Critical Care Time: 60 Attestation: I personally attest to this time spent taking care of the patient. Discharge Plan Discharge Clinical Impression: Non-ST elevation MO (NSTEMI) Patient Disposition: [facility] Transfer Details: Higher level of care Prescriptions: No Action chlorthalidone 50 mg tablet 50 mg PO QAM 90 Days Qty: 30 0RF trazodone 50 mg tablet 1 tab PO BEDTIME PRN (Reason: insomnia) cholecalciferol (vitamin D3) 50 mcg (2,000 unit) capsule 50 mcg PO DAILY 90 Days Qty: 90 3RF bisacodyl [Dulcolax (bisacodyl)] 5 mg tablet,delayed release (DR/EC) 10 mg PO ONCE 1 Days Qty: 2 0RF Rx Instructions: Take 2 tablets by mouth at 12:00pm the day before your procedure. polyethylene glycol 3350 [Miralax] 17 gram/dose powder 238 g PO ONCE 1 Days Qty: 238 0RF Rx Instructions: Take as directed by mouth the day before your procedure.
[2023-06-19 21:07] LABS: Hematocrit 46.2 % (42.0-52.0); Hemoglobin 15.8 g/dl (14.0-18.0); Mean Corpuscular HGB Conc 34.2 g/dl (31.0-36.0); Mean Corpuscular Hemoglobin 29.8 pg (27.0-33.0); Mean Platelet Volume 10.4 fL (9.4-12.4); Platelet Count 273 X10*3/uL (160-400); Red Blood Count 5.31 X10*6/uL (4.60-5.80); Red Cell Distribution Width 13.1 % (11.0-16.0); White Blood Count 9.4 X10*3/uL (4.8-10.8)
[2023-06-19 21:22] LABS: Alanine Aminotransferase 27 U/L (0-40); Albumin Level 4.2 g/dL (3.5-5.0); Alkaline Phosphatase 75 U/L (39-117); Anion Gap 11 (12-20); Aspartate Amino Transferase 25 U/L (5-37); Bilirubin Total 0.6 mg/dL (0.0-1.0); Blood Urea Nitrogen 17 mg/dL (9-16); Calcium 9.9 mg/dL (8.4-10.2); Carbon Dioxide 28 mmol/L (22-29); Chloride 104 mmol/L (96-108); Creatinine Clr Calc Pharmacy 100.7; Estimated Glomerular Filt Rate > 60; Glucose Random 106 mg/dL (60-115); Potassium 4.1 mmol/L (3.3-5.1); Sodium 139 mmol/L (135-145); Total Protein 7.3 g/dL (6.5-8.0)
[2023-06-19 21:32] LABS: Troponin-I High Sensitivity 17.9 ng/L (<3.5-35.0)
--- NOTE | 2023-06-19 23:48 | PC.NURSE ---
pt changed into hospital attire, pt placed on heart monitor. Notified WARREN Zheng. No sign of distress.
[2023-06-20 00:11] VITALS: BP 161/92; PULSE 54; RESP 18; O2SAT 98
[2023-06-20 03:00] LABS: Troponin-I High Sensitivity 351.8 ng/L (<3.5-35.0)
--- NOTE | 2023-06-20 03:07 | ECG_ITS ---
Test Reason : CHEST PAIN - REPEAT EKG Blood Pressure : / mmHG Vent. Rate : 052 BPM Atrial Rate : 052 BPM P-R Int : 166 ms QRS Dur : 092 ms QT Int : 442 ms P-R-T Axes : 022 -23 -17 degrees QTc Int : 411 ms Sinus bradycardia Septal infarct (cited on or before 19-JUN-2023) Abnormal ECG When compared with ECG of 19-JUN-2023 20:51, T wave inversion now evident in Anterior leads Referred By: Keira Almanzar Electronically Signed By:MARY ELLEN GUTIERREZ
--- NOTE | 2023-06-20 03:23 | MHC.EDTECH ---
Call out to [facility] Interventional?Senior Clinical Research Scientist @[phone]. Waiting for call back for
[2023-06-20] MEDS: Aspirin 81 MG TAB.CHEW 324 MG PO (03:36)
[2023-06-20] MEDS: Ticagrelor 90 MG TABLET 180 MG PO (03:36)
[2023-06-20 03:48] LABS: INTERNATIONAL NORM RATIO 0.9 (0.9-1.1); Prothrombin Time 11.3 SEC (11.1-13.3)
[2023-06-20 03:51] LABS: Partial Thromboplastin Time 34.6 SEC (26.0-36.4)
[2023-06-20 04:00] VITALS: BP 141/93; PULSE 48; RESP 16; TEMP 36.6; O2SAT 96
--- NOTE | 2023-06-20 04:07 | MHC.EDTECH ---
Second call out to [facility] @[phone], waiting for call back for .
[2023-06-20] MEDS: Heparin Sodium,Porcine/1/2NS 25,000 UNIT/250 ML IV.SOLN 10 UNIT IVCONT (04:13)
--- NOTE | 2023-06-20 04:20 | PC.NURSE ---
Pt alert and oriented, denies any pain at this time. SB in 40-50's, reports he was at the gym and felt pressure and discomfort. repeat troponin delayed in lab due to maintenance, came back elevated at 351.8. MD ordered PT/inr and ptt labs were drawn and sent. Also ordered asa, brilinta and heparin gtt that have been given and started Awaiting transfer to [facility]. IV #20 LAC
--- NOTE | 2023-06-20 04:21 | MHC.EDTECH ---
@[phone] Chiqui from [facility] transfer line called to confirm patients demographics and to inform hospitalist will be calling back to speak to regarding patient
[2023-06-20 05:23] LABS: COVID-19 Test Negative (Negative); IDNOW Serial# BCCEAD1C
--- NOTE | 2023-06-20 05:31 | MHC.EDTECH ---
Room assignment MM6 ROOM 25 NURSE TO NURSE [phone]
--- NOTE | 2023-06-20 05:32 | MHC.EDTECH ---
Call out to [facility] @[phone] to book ALS transport to [facility] MM6 ROOM 25
== END 2023-06-20 06:00 | disposition short-term general hospital (02) ==
PROVIDERS: Emergency Provider Student in an Organized Health Care Education/Training Program; PCP Internal Medicine
DX: I21.4 Non-ST elevation (NSTEMI) myocardial infarction (principal); R07.89 Other chest pain; Z20.822 Contact with and (suspected) exposure to COVID-19; Z20.828 Contact with and (suspected) exposure to other viral communicable diseases; Z79.899 Other long term (current) drug therapy
CPT/HCPCS: 36415; 71046; 80053; 84484; 85027; 85610; 85730; 87635; 93005; 96374; 99285; J1643

== ENCOUNTER 2023-09-19 00:37 | Emergency (ER) | payer OTHER, SELFPAY ==
[2023-09-19 00:58] VITALS: BP 177/92; PULSE 57; RESP 20; TEMP 36.1; O2SAT 100; BMI 27.4
[2023-09-19 02:39] VITALS: BP 151/98; PULSE 64; RESP 16; O2SAT 98
--- NOTE | 2023-09-19 02:40 | ED_ITS ---
HPI - General Adult General Chief complaint: General Medical Stated complaint: High BP Time Seen by Provider: 09/19/23 02:35 Source: patient Mode of arrival: ambulatory Limitations: no limitations History of Present Illness HPI narrative: 53 yo male with PMH of HTN here with c/o running out of his chlorthalidone 50mg 5 days ago had stress earlier and BP was up but no stroke symptoms CP/SOB he feels much better now. MD complaint: HTN Onset (ago): day(s) (5) Radiation: non-radiation Severity: mild Quality: dull Pain Consistency: intermittent Relieving factors: none Exacerbating factors: other (stress) Associated symptoms: denies other symptoms Treatments prior to arrival: none Related Data Home Medications Medication Instructions Recorded Confirmed trazodone 50 mg tablet 1 tab PO BEDTIME PRN insomnia 05/24/22 09/21/22 Previous Rx's Medication Instructions Recorded cholecalciferol (vitamin D3) 50 50 mcg PO DAILY 90 days #90 caps 09/29/21 mcg (2,000 unit) capsule bisacodyl 5 mg tablet,delayed 10 mg (2 x 5 mg) PO ONCE 10/20/22 release (Dulcolax (bisacodyl)) colonoscopy prep 1 day #2 tabs polyethylene glycol 3350 17 238 g PO ONCE 1 day #238 grams 10/20/22 gram/dose oral powder (Miralax) chlorthalidone 50 mg tablet 50 mg PO QAM 3 months #30 tabs 07/19/23 chlorthalidone 50 mg tablet 50 mg PO DAILY #30 tabs 09/19/23 Allergies Allergy/AdvReac Type Severity Reaction Status Date / Time No Known Allergies Allergy Verified 06/19/23 20:56 [No Known Allergies*] Review of Systems Review of Systems: Constitutional : No Fever, No Chills, No Fatigue ENT/Mouth : No sore throat, No Rhinorrhea Eyes: No Eye Pain, No Swelling, No Redness Cardiovascular : No Chest Pain, No SOB, No Dyspnea on Exertion Respiratory : No Cough, No Sputum Gastrointestinal : No Nausea, No Vomiting, No Diarrhea, No abdominal Pain Genitourinary : No Dysuria, No Urinary Frequency, No Hematuria, Musculoskeletal : No joint pain, No Myalgias, No Joint Swelling Skin : No Skin Lesions, No rash Neuro : No Weakness, No Numbness, No Dizziness, no Headache Psych : No Anxiety/Panic, No Depression Heme/Lymph: No Bruising, No Bleeding,No Lymphadenopathy Endocrine : No Polyuria, No Polydipsia All other systems reviewed and are negative PMFSH Past Medical History Attestation statement: The following information was validated with the patient. Source: old records reviewed Medical History History of COVID-19 Vitamin D deficiency Depression Insomnia Renal stone Obesity (BMI 30-39.9) Benign essential hypertension Hypertension Surgical History Hx of colonoscopy Hx of lithotripsy History of inguinal hernia repair Family History Family History Mother Hypertension Father Hypertension Social History Social History Housing: House Alcohol intake: never Patient Tobacco Use Status: Never used Tobacco Second Hand Smoke Exposure: No Advance Directives: No Advance Directives Information Provided: Yes service: No Current occupational status: employed Current occupation: maintenance Cognitive needs: No Hearing needs: No Vision needs: No Physical Exam ED Vital Signs: Vital Signs - 24 hr 09/19/23 00:58 09/19/23 02:39 Temperature 97.0 F Pulse Rate 57 64 Respiratory Rate 20 16 Blood Pressure 177/92 H 151/98 H Pulse Oximetry 100 98 Oxygen Delivery Method Room Air Room Air BMI result Body Mass Index 27.4 Appearance: Alert. Oriented X3. No acute distress. Eyes: Pupils equal, round and reactive to light. ENT: Pharynx normal. Neck: Normal inspection. Neck supple. CVS: Normal heart rate and rhythm. Pulses normal. Respiratory: No respiratory distress. Breath sounds normal. Abdomen: Soft and nontender. Skin: Skin warm and dry. Normal skin color. Normal skin turgor. Extremities: No lower extremity edema. No calf ttp Neuro: Oriented X 3. No motor deficit. No sensory deficit. Medical Decision Making Medical Decision Making MDM Narrative: 53 yo male asymptomatic HTN here with c/o running out of medications at this time will resume his chlorthalidone has had normal Cr in past - he is asymptomatic will follow up with his PCP no signs of end organ dysfunction, here for med refill. Differential Diagnosis Differential Diagnoses: The differential diagnosis associated with the presentation includes HTN External Record Review External record reviewed: Inpatient record Prescription Management I considered prescription management with: Other Chronic Conditions Patient?s care impacted by: Hypertension Discharge Plan Discharge Clinical Impression: Hypertension Qualifiers: Hypertension type: unspecified Qualified Code(s): I10 - Essential (primary) hypertension Patient Disposition: Home, Self-Care Instructions: Chronic Hypertension (ED) Additional Instructions: return for chest pain, numbness, weakness, severe headache or any other concerns . Regrese si tiene dolor en el pecho, entumecimiento, debilidad, dolor de clayton intenso o cualquier otra inquietud. Prescriptions: New chlorthalidone 50 mg tablet 50 mg PO DAILY Qty: 30 0RF No Action chlorthalidone 50 mg tablet 50 mg PO QAM 90 Days Qty: 30 0RF trazodone 50 mg tablet 1 tab PO BEDTIME PRN (Reason: insomnia) cholecalciferol (vitamin D3) 50 mcg (2,000 unit) capsule 50 mcg PO DAILY 90 Days Qty: 90 3RF bisacodyl [Dulcolax (bisacodyl)] 5 mg tablet,delayed release (DR/EC) 10 mg PO ONCE 1 Days Qty: 2 0RF Rx Instructions: Take 2 tablets by mouth at 12:00pm the day before your procedure. polyethylene glycol 3350 [Miralax] 17 gram/dose powder 238 g PO ONCE 1 Days Qty: 238 0RF Rx Instructions: Take as directed by mouth the day before your procedure.
== END 2023-09-19 03:39 | disposition home or self-care (01) ==
PROVIDERS: Emergency Provider Emergency Medicine
DX: F43.9 Reaction to severe stress, unspecified (principal); I10 Essential (primary) hypertension; Z79.899 Other long term (current) drug therapy
CPT/HCPCS: 99283

== ENCOUNTER 2023-09-20 16:02 | Outpatient (AMB) | payer OTHER, SELFPAY ==
[2023-09-20 16:05] VITALS: BP 126/84; PULSE 98; O2SAT 98; BMI 27.6
--- NOTE | 2023-09-20 16:05 | A.OFFPC_ITS ---
Vital Signs 09/20/23 16:05 09/20/23 16:14 Height 5 ft 7 in Weight 176 lb 2 oz BMI 27.6 BP 126/84 126/86 Blood Pressure Location Lt brachial Rt brachial Position Sitting Pulse 98 Pulse Source Pulse Oximeter Pulse Oximetry (%) 98 Oxygen Delivery Method Room Air Intake Visit Reasons: Annual Physical Copy Coordinator Required: No Accompanied by: Self / Same As Patient Allergies No Known Allergies [No Known Allergies*] Allergy (Verified 09/21/23 03:23) Medication List - Last Reconciled 09/21/23 by Harry Cooper MD aspirin 81 mg PO DAILY 90 days atorvastatin 40 mg PO DAILY 90 days chlorthalidone 50 mg PO QAM 90 days cholecalciferol (vitamin D3) 50 mcg PO DAILY 90 days lisinopril 2.5 mg PO DAILY 90 days trazodone 50 mg PO BEDTIME PRN Tobacco use date assessed: 09/20/23 Dental Screening Dental Screen Date: 09/20/23 Did you have a dental visit in the last 12 months?: No Did you have a dental problem in the last 6 months where you did not have access to dental care?: No Was dental information given to patient?: No HPI Annual Physical HPI Details Patient comes in today for his annual physical examination - he was last seen here over a year ago in June 2022 Patient apparently suffered a NSTEMI back in June 2023 He presented back then to the ER with chest pressure that started while he was working out at the gym He was reportedly out of his blood pressure medication for about 4 days at the time when his symptom(s) occurred Work ups done at the ER then revealed a significantly elevated troponin level at 351.8 EKG demonstrated some T-wave abnormalities within the anterolateral leads Cardiology was consulted and they recommended transferring patient to [facility] for angiography and interventional management Cardiac cath done revealed MINOCA/no hemodynamically significant lesions; TTE showed no wall motion abnormalities and preserved EF He was continued in low dose Aspirin 81 mg QD and Atorvastatin 40 mg QD and importance of BP control and risk factor reduction was reinforced Patient was not started on a beta nimisha due to bradycardia Patient presented to the ER again a couple of days ago for elevated blood pressure as he ran out of his blood pressure medication 5 days prior States that he did not have any chest pains or any other symptoms at that time His blood pressure medication was refilled and he instructed to keep his follow- up appointment today States that he currently feels okay He denies any headaches or dizziness Denies any chest pains, no shortness of breath No nausea / vomiting, no abdominal pain No change in bowel habits noted He denies any acute urinary symptoms He had his colonoscopy done by Dr. Lo back in December 2022 - colonoscopy revealed internal hemorrhoids and diverticulosis, but he was recommended repeat colonoscopy in 1-2 years due to fair prep Patient adds that he has been feeling depressed lately and would like to get a referral to see a psychiatrist and also for counseling; prefers not to start taking any antidepressants this time [facility] Medical History (Updated 09/21/23 @ 05:01 by Harry Cooper MD) Overweight (BMI 25.0-29.9) Non-ST elevation DE (NSTEMI) (~06/2023) History of COVID-19 Vitamin D deficiency Depression Insomnia Renal stone Obesity (BMI 30-39.9) Benign essential hypertension Hypertension Surgical History Hx of colonoscopy Hx of lithotripsy History of inguinal hernia repair Family History Mother Hypertension Father Hypertension Social History Housing: House Alcohol intake: never Patient Tobacco Use Status: Never used Tobacco Second Hand Smoke Exposure: No service: No Current occupational status: employed Current occupation: maintenance Cognitive needs: No Hearing needs: No Vision needs: No Questionnaire PHQ-9 Over the last 2 weeks, how often have you been bothered by any of the following problems? 1. Little interest or pleasure in doing things: several days 2. Feeling down, depressed, or hopeless: more than half the days 3. Trouble falling or staying asleep, or sleeping too much: nearly every day 4. Feeling tired or having little energy: several days 5. Poor appetite or overeating: not at all 6. Feeling bad about yourself - or that you are a failure or have let yourself or your family down: not at all 7. Trouble concentrating on things, such as reading the newspaper or watching television: not at all 8. Moving or speaking so slowly that other people could have noticed. Or the opp osite - being so fidgety or restless that you have been moving around a lot more than usual: not at all 9. Thoughts that you would be better off or of hurting yourself in some way: not at all Total score: 7 Depression Screening Interpretation: Positive (requested for referral for counseling and to see psychiatry but declines offer to start Rx) Depression Screening Follow-up: Existing condition, Community Mental Health Worker F/U and Follow-up Visit Requested Depression Screening Done: Yes [id number] - PHQ-9 Billing: Yes Source: Developed by Drs. Christofer Beltre, Latha Colorado, oMrgan Llanes and colleagues, with an educational saqib from [employer]. Thrive Questionnaire Date Thrive assessed: 09/20/23 I am a: Patient What is your living situation today?: I have a steady place to live Within the past 12 months, did the food you bought not last and you didn't have the money to get more?: Never true Within the past 12 months, did you worry whether your food would run out before you got money to buy more?: Never true Do you have trouble paying for medicines?: No Do you have trouble getting transportation to medical appointments?: No Do you have trouble paying your heating and electricity bill?: No Do you have trouble taking care of your child, family member or friend?: No Do you have trouble with day-to-day activities such as bathing, preparing meals, shopping, managing finances, etc.?: No Are you currently unemployed and looking for a job?: No Are you interested in more education?: No Please select the resources that you would like help with: None Currently or been in a relationship where the following occur: no concerns reported AUDIT C Alcohol Use Questionnaire (AUDIT-C) 1. How often do you have a drink containing alcohol?: Never 3. How often do you have six or more drinks on one occasion?: Never Total Score: 0 Score Reviewed/Action Taken: Yes JAKE-7 AMB Questionnaire JAKE-7 Date JAKE - 7 assessed: 09/20/23 Feeling nervous, anxious, or on edge: 0 = Not at all Not being able to stop or control worryin = Not at all Worrying too much about different things: 0 = Not at all Trouble relaxin = Not at all Being so restless that it is hard to sit still: 0 = Not at all Becoming easily annoyed or irritable: 0 = Not at all Feeling afraid as if something awful might happen: 0 = Not at all Total JAKE-7 score (0-4 normal; 5-9 mild; 10-14 moderate; 15-21 severe): 0 Source: Developed by Drs. Christofer Beltre, Latha Colorado, Morgan Llanes and colleagues, with an educational saqib from [employer]. Review of Systems Const Denies chills, Reports difficulty sleeping (Rx help), Denies fatigue, Denies fever(s), Denies headache(s), Denies malaise and Denies weakness Eyes Denies blurry vision, Denies change in vision, Denies irritation and Denies itchy eyes ENT Denies dysphagia, Denies dizziness, Denies otalgia, Denies headache(s), Denies nasal congestion, Denies neck pain, Denies odynophagia and Denies sore throat Card Denies chest pain, Denies rapid heart rate, Denies irregular heart rhythm, Denies palpitations and Denies dyspnea Resp Denies chest congestion, Denies cough, Denies dyspnea and Denies wheezing GI Denies abdominal pain, Denies bloating, Denies constipation, Denies dysphagia, Denies heartburn, Denies diarrhea, Denies nausea, Denies odynophagia and Denies vomiting Denies hematuria, Denies difficulty urinating, Denies dysuria, Denies urinary frequency and Denies urinary urgency Musc Denies back pain, Denies arthralgias, Denies joint swelling, Denies muscle weakness and Denies neck pain Skin/Breast Denies change in pigmentation, Denies lesions, Denies rash and Denies unusual bruising Neuro Denies dizziness, Denies headache(s), Denies paresthesias and Denies weakness Endo Denies fatigue and Denies palpitations Aller/Immun Denies itchy eyes and Denies wheezing Physical exam (Primary Care) Vital Signs: Last Vital Signs Pulse 98 09/20/23 16:05 BP 126/86 09/20/23 16:14 Pulse Ox 98 09/20/23 16:05 Oxygen Delivery Method Room Air 09/20/23 16:05 BMI result Body Mass Index 27.6 Tobacco/Smoking Status: Tobacco use Status Tobacco use date assessed 09/20/23 09/20/23 16:08 Patient Tobacco Use Status Never used Tobacco 09/20/23 16:08 PHQ-9: PHQ-9 Score PHQ-9: Total score 0 09/20/23 16:51 Depression Screening Interpretation: Positive (requested for referral for counseling and to see psychiatry but declines offer to start Rx) Depression Screening Follow-up: Existing condition, Community Mental Health Worker F/U and Follow-up Visit Requested Thrive Assessment: Date of Thrive Assessment Date Thrive assessed 09/20/23 09/20/23 16:08 Currently or been in a relationship where the following occur: no concerns reported Const General: no acute distress, alert and awake Orientation/consciousness: patient oriented x3 HENMT Head: Yes normocephalic and Yes atraumatic Ears: external ears normal, TM's normal bilaterally and EAC's normal General nose exam: No nasal discharge present Face and sinus: Yes normal facial exam and Yes sinuses nontender Teeth and gingiva: dentition normal Throat: Yes posterior oropharynx normal and Yes tonsils normal (no TP congestion) Eyes Eyelids: Yes eyelids normal Conjunctivae: conjunctivae normal Pupils: Equal, round and reactive pupils present EOM: EOMs intact bilaterally Neck Neck: Yes no lymphadenopathy and Yes supple Thyroid: Thyroid normal Resp Auscultation: clear to auscultation bilaterally, no rales and no wheezes Cardio Rate: regular rate Rhythm: regular rhythm Heart sounds: no murmurs GI Palpation (GI): Soft to palpation, nontender and No hepatosplenomegaly present Auscultation: normal bowel sounds General: Yes no CVA tenderness Back/Spine/Pelvis Back: no CVA tenderness Thoracic/Lumbar Spine: thoracic and lumbar spine normal to inspection Skin Lesions: no lesions Rashes: no rashes Neuro General: patient oriented x3, moves all extremities, no focal motor deficits and CN's II-XI intact bilaterally Cranial nerves: Yes Equal, round and reactive pupils present Cognition (Neuro): normal cognition Gait exam (Neuro): Normal gait present Extrem General: Yes no clubbing, cyanosis or edema Assessment and Plan Assessment & Plan (1) Annual physical exam: Code(s): Z00.00 - Encounter for general adult medical examination without abnormal findings Plan: Check labs MAURICE Patient is currently up-to-date with his colon cancer screening - was done back in December 2022 but recommended to have repeat colonoscopy in 1 to 2 years due to fair prep (2) Non-ST elevation DE (NSTEMI): Onset Date: ~06/2023 Comment: cardiac cath done at [facility] revealed MINOCA; TTE revealed preserved EF with no wall motion abnormalities Code(s): I21.4 - Non-ST elevation (NSTEMI) myocardial infarction Plan: Occurred in June 2023 when patient was reportedly working out at the gym and he was out of his BP med for 5 days at the time Coronary angiography done at [facility] revealed no hemodynamically significant lesion and TTE showed preserved EF with no wall motion abnormalities Continue Aspirin 81 mg QD and Lisinopril 2.5 mg QD He was not started on beta blockers at the time due to bradycardia Continue risk factor modification and optimization cholesterol levels and BP control Follow up with [facility] Cardiology as scheduled (3) Benign essential hypertension: Code(s): I10 - Essential (primary) hypertension Plan: Reinforced low sodium diet - goal is systolic BP of 120 mm or less Continue Chlorthalidone 50 mg QD (4) Vitamin D deficiency: Code(s): E55.9 - Vitamin D deficiency, unspecified Plan: Will recheck his Vitamin D level for follow up (5) Insomnia: Code(s): G47.00 - Insomnia, unspecified Qualifiers: Insomnia type: unspecified Qualified Code(s): G47.00 - Insomnia, unspecified Plan: Sleep hygiene reinforced Continue Trazodone 50 mg Q HS PRN (6) Depression: Code(s): F32.A - Depression, unspecified Qualifiers: Depression Type: unspecified Qualified Code(s): F32.A - Depression, unspecified Plan: Patient declined offer to start him on Rx at this time Per request, will refer him for counseling and to see psychiatry MAURICE (7) Overweight (BMI 25.0-29.9): Code(s): E66.3 - Overweight Plan: Reinforced diet/exercise as tolerated/lose weight Plan Follow up in 3 months Orders: Orders Complete Blood Count Auto Diff 09/20/23 I21.4 - Non-ST elevation (NSTEMI) myocardial infarction TSH reflex Free T4 09/20/23 E78.00 - Pure hypercholesterolemia, unspecified, I21.4 - Non-ST elevation (NSTEMI) myocardial infarction UA CC w/rflx Micro + Cult 09/20/23 I21.4 - Non-ST elevation (NSTEMI) myocardial infarction, R30.0 - Dysuria Vitamin D 25-OH Total 09/20/23 E55.9 - Vitamin D deficiency, unspecified, I21.4 - Non-ST elevation (NSTEMI) myocardial infarction Comprehensive [place]. Panel Fast 09/20/23 E78.00 - Pure hypercholesterolemia, unspecified, I21.4 - Non-ST elevation (NSTEMI) myocardial infarction Lipid Panel 09/20/23 E78.00 - Pure hypercholesterolemia, unspecified, I21.4 - Non-ST elevation (NSTEMI) myocardial infarction Referrals Psychiatry Referral F32.A - Depression, unspecified, F41.9 - Anxiety disorder, unspecified Medications: New lisinopril 2.5 mg PO DAILY 90 days 90 tabs 1RF atorvastatin 40 mg PO DAILY 90 days 90 tabs 1RF aspirin 81 mg PO DAILY 90 days 90 tabs 3RF Changed From chlorthalidone 50 mg PO QAM 3 months 30 tabs 0RF To chlorthalidone 50 mg PO QAM 90 days 90 tabs 1RF Coding Level of Care Code Est Pt Prev Care 40-64y(12837) Diagnoses Annual physical exam Z00.00 Non-ST elevation DE (NSTEMI) I21.4 Benign essential hypertension I10 Vitamin D deficiency E55.9 Insomnia, unspecified type G47.00 Insomnia type: unspecified Depression, unspecified depression type F32.A Depression Type: unspecified Overweight (BMI 25.0-29.9) E66.3
[2023-09-20 16:14] VITALS: BP 126/86
== END 2023-09-20 16:53 | disposition home or self-care (01) ==
PROVIDERS: PCP Internal Medicine; Visit Provider Internal Medicine
DX: Z00.00 Encounter for general adult medical examination without abnormal findings (principal); I25.2 Old myocardial infarction; I10 Essential (primary) hypertension; E55.9 Vitamin D deficiency, unspecified; G47.00 Insomnia, unspecified; F32.A Depression, unspecified; E66.3 Overweight
CPT/HCPCS: 99396

== ENCOUNTER 2023-10-10 15:37 | Outpatient (REF) | payer OTHER, SELFPAY ==
--- NOTE | ~2023-10-10 | US_ITS ---
EXAMINATION: US RETROPERITONEAL LIMITED (RENAL ONLY) CLINICAL INFORMATION: Benign lipomatous neoplasm, unspecified. COMPARISON: X-ray abdomen KUB 10/10/2023. Renal ultrasound 07/13/2022 and 06/29/2021. X-ray abdomen KUB 06/08/2016. TECHNIQUE: Real-time imaging of the kidneys. Limited visualization due to bowel gas and body habitus. FINDINGS: RIGHT KIDNEY: 11.8 x 5.5 x 5.0 cm (SAG x AP x TRV). Multiple echogenic foci, largest 7 mm upper pole and 3-4 mm lower pole, difficult to characterize the limited visualization, possibly representing renal calculi. No hydronephrosis. 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 LEFT KIDNEY: 10.4 x 5.7 x 5.5 cm (SAG x AP x TRV). No hydronephrosis. No renal calculi. Renal cortical thickness is normal. Limited visualization. US/US renal BI IMPRESSION: 1. Multiple right renal echogenic foci, largest 7 mm upper pole and 3-4 mm lower pole, difficult to characterize due to limited visualization, possibly representing renal calculi. No hydronephrosis. CT urogram without intravenous contrast could be considered for further evaluation. 2. 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
== END 2023-10-10 15:38 | disposition home or self-care (01) ==
LOC: HO.US 15:37
PROVIDERS: Visit Provider Urology
DX: D17.9 Benign lipomatous neoplasm, unspecified (principal); N20.0 Calculus of kidney
CPT/HCPCS: 74018; 76775

== ENCOUNTER 2023-11-07 14:34 | Outpatient (AMB) | payer OTHER, SELFPAY ==
--- NOTE | 2023-11-07 14:44 | MHC.OFFVIS ---
Intake Intake Visit Reasons: follow up/US(set) Intake Note: Patient is present for Ultrasound follow up Allergies No Known Allergies [No Known Allergies*] Allergy (Verified 11/07/23 14:44) HPI HPI Comments History of Present Illness Details Robert is a pleasant male. He is seen for the following urologic conditions - renal cyst Czech translation provided in office by qualified medical assistant per diem Discussed ultrasound results Encourage fluids 12 month follow-up imaging Renal cyst Discussed current imaging findings Imaging - 07/06 renal ultrasound 1 cm right angiomyolipoma, 6 mm question calcification left - 08/06 renal ultrasound, stable 1 cm right angiomyolipoma, 6 mm bilateral calcifications - 11/08 renal ultrasound small stone right Continue with imaging surveillance [facility] Medical History Overweight (BMI 25.0-29.9) Non-ST elevation [place] (NSTEMI) (~06/2023) History of COVID-19 Vitamin D deficiency Depression Insomnia Renal stone Obesity (BMI 30-39.9) Benign essential hypertension Hypertension Surgical History Hx of colonoscopy Hx of lithotripsy History of inguinal hernia repair Family History Mother Hypertension Father Hypertension Social History Housing: House Alcohol intake: never Patient Tobacco Use Status: Never used Tobacco Second Hand Smoke Exposure: No service: No Current occupational status: employed Current occupation: maintenance Cognitive needs: No Hearing needs: No Vision needs: No Review of Systems Const Denies chills and Denies fever(s) Card Reports no additional complaints and Denies syncope Resp Denies cough GI Denies abdominal pain and Denies heartburn Reports as per HPI and Denies change in libido Neuro Denies syncope Psych Denies change in libido Endo Denies change in libido Physical Exam Const General: cooperative, healthy appearing, comfortable and no acute distress Orientation/consciousness: patient oriented x3 HEENT Face and sinus: Yes normal facial exam Mouth: moist mucous membranes Neck Neck: Yes normal visual inspection, Yes full ROM and Yes trachea midline Chest Chest palpation & inspection: normal inspection of the chest Resp Effort & Inspection: normal respiratory effort, able to speak in complete sentences and no respiratory distress GI Inspection: Yes normal to inspection Back/Spine/Pelvis Cervical Spine: normal cervical lordosis Thoracic/Lumbar Spine: thoracic and lumbar spine normal to inspection Skin General skin exam: no rashes or lesions noted Neuro General: patient oriented x3, gait normal, tone normal and moves all extremities Extrem General: Yes normal to inspection and Yes capillary refill normal Assessment & Plan Assessment & Plan (1) Renal stone: Code(s): N20.0 - Calculus of kidney Plan Ultrasound 12 months Encourage fluids Orders: Orders US renal BI 10 Months N20.0 - Calculus of kidney Patient Instructions: Imaging studies, laboratory and physical exam results were discussed and reviewed in detail. No major barriers to patient understanding were identified. An opportunity to ask questions regarding the treatment plan was provided. All questions were answered. The patient expressed understanding and agreement with the above treatment plan. The patient is aware they should contact our office by phone for worsening of their current condition or the appearance of new urologic symptoms. Compliance is encouraged with any medications and followup testing that is ordered. It is a privilege to participate in the urologic care of your patient. If you have any questions or concerns regarding treatment for the above conditions, or other urologic issues, please do not hesitate to contact me. The office telephone contact is [phone]. This note is constructed using voice recognition software. While every effort has been made to ensure accuracy lubrication servicer errors may have been included. Yours sincerely, Dr Kana Richards MD, [facility] - Urology Providers of Expert, Compassionate Care for the Genitourinary System Coding Level of Care Code Est Pt Level 4 (84634) Diagnoses Renal stone N20.0
== END 2023-11-07 15:03 | disposition home or self-care (01) ==
PROVIDERS: Visit Provider Urology
DX: N20.0 Calculus of kidney (principal)
CPT/HCPCS: 99213

== ENCOUNTER → 2023-11-07 14:34 | Outpatient (BNVA) | payer OTHER, SELFPAY | PROVIDERS: Visit Provider Urology ==

== ENCOUNTER 2023-11-15 07:29 | Outpatient (REF) | payer OTHER, SELFPAY ==
[2023-11-15 07:39] LABS: MANUAL DIFF FLAG NO
[2023-11-15 07:51] LABS: Basophils Percent Auto 0.6 % (0-2); Eosinophils Absolute Auto 0.3 X10*3/uL (0.0-0.4); Eosinophils Percent Auto 4.4 % (0-4); Hematocrit 45.8 % (42.0-52.0); Hemoglobin 16.1 g/dl (14.0-18.0); Imm Gran Abs Auto 0.02 X10*3/uL (0.00-0.03); Imm Gran Pct Auto 0.3 % (0.0-0.4); Lymphocytes Absolute Auto 2.3 X10*3/uL (1.2-4.9); Lymphocytes Percent Auto 31.2 % (20-40); Mean Corpuscular HGB Conc 35.2 g/dl (31.0-36.0); Mean Corpuscular Hemoglobin 29.9 pg (27.0-33.0); Mean Platelet Volume 10.7 fL (9.4-12.4); Monocytes Absolute Auto 0.6 X10*3/uL (0.1-1.2); Neutrophils Percent Auto 55.5 % (45-73); Platelet Count 256 X10*3/uL (160-400); Red Blood Count 5.39 X10*6/uL (4.60-5.80); White Blood Count 7.3 X10*3/uL (4.8-10.8)
[2023-11-15 08:02] LABS: Appearance Urine Clear; Color Urine Yellow; Glucose Urine UA Negative (Negative); Leukocyte Esterase Urine Trace (Negative); Nitrite Urine Negative (Negative); UMIC TRIGGER UACC YES; Urine Blood Negative (Negative); Urine Ketones Negative (Negative); Urine Protein Negative (Neg-Trace)
[2023-11-15 08:04] LABS: Bacteria Urine None Seen (None Seen); Hyaline Casts Urine 0-2 /LPF (0-2); RBC Urine 0-2 /HPF (0-2); Squamous Epithelial Cell Urine 0-2 /HPF (0-2); WBC Urine 0-5 /HPF (0-5)
[2023-11-15 08:53] LABS: Alanine Aminotransferase 27 U/L (0-40); Albumin Level 4.1 g/dL (3.5-5.0); Alkaline Phosphatase 56 U/L (39-117); Aspartate Amino Transferase 26 U/L (5-37); Bilirubin Total 0.7 mg/dL (0.0-1.0); Blood Urea Nitrogen 21 mg/dL (9-16); Calcium 9.5 mg/dL (8.4-10.2); Cholesterol 180 mg/dL (<200); Estimated Glomerular Filt Rate > 60; Glucose Fasting 83 mg/dL (60-99); HDL Cholesterol 50 mg/dL (>40); LDL Cholesterol Calculated 116 mg/dL (<100); Total Protein 7.2 g/dL (6.5-8.0); Triglycerides 72 mg/dL (<150)
[2023-11-15 09:00] LABS: TSH reflex Free T4 0.94 uIU/mL (0.32-4.0); Vitamin D 25-OH Total 21.8 ng/mL (>30)
[2023-11-15 09:18] LABS: Anion Gap 13 (12-20); Carbon Dioxide 29 mmol/L (22-29); Chloride 101 mmol/L (96-108); Potassium 2.9 mmol/L (3.3-5.1); Sodium 140 mmol/L (135-145)
== END 2023-11-15 07:30 | disposition home or self-care (01) ==
LOC: HO.LAB 07:29
PROVIDERS: PCP Internal Medicine; Visit Provider Internal Medicine
DX: I21.4 Non-ST elevation (NSTEMI) myocardial infarction (principal); E55.9 Vitamin D deficiency, unspecified; E78.00 Pure hypercholesterolemia, unspecified
CPT/HCPCS: 36415; 80053; 80061; 81001; 81003; 82306; 84443; 85025

== ENCOUNTER 2024-01-25 10:33 | Outpatient (AMB) | payer OTHER, SELFPAY ==
[2024-01-25 10:35] VITALS: BP 122/80; PULSE 92; O2SAT 98; BMI 27.3
--- NOTE | 2024-01-25 10:35 | MHC.PC.OV ---
Vital Signs 01/25/24 10:35 Height 5 ft 7 in Weight 174 lb 0.6 oz BMI 27.3 BP 122/80 Blood Pressure Location Lt brachial Position Sitting Pulse 92 Pulse Source Pulse Oximeter Pulse Oximetry (%) 98 Oxygen Delivery Method Room Air Intake Visit Reasons: CAD, hyperlipidemia Gas [employer] F[employer] Helper Required: No Allergies No Known Allergies [No Known Allergies*] Allergy (Verified 01/25/24 11:29) Medication List - Last Reconciled 01/25/24 by Harry Cooper MD aspirin 81 mg PO DAILY 90 days atorvastatin 40 mg PO DAILY 90 days chlorthalidone 50 mg PO QAM 90 days cholecalciferol (vitamin D3) 50 mcg PO DAILY 90 days lisinopril 2.5 mg PO DAILY 90 days potassium chloride ER 10 mEq PO DAILY trazodone 50 mg PO BEDTIME PRN Tobacco use date assessed: 01/25/24 Dental Screening Dental Screen Date: 01/25/24 Did you have a dental visit in the last 12 months?: No Did you have a dental problem in the last 6 months where you did not have access to dental care?: No HPI CAD, hyperlipidemia HPI Details Patient comes in today for his follow up visit States that he feels okay Would like to know if he needs to continue taking his potassium tablets - was started on this when his labs done a couple of months ago came back with a potassium of 2.9 He denies any headaches or dizziness Denies any chest pains, no SOB No nausea/vomiting, no abdominal pain No change in bowel habits noted Is also requesting for a referral to psychiatry for counseling - states that he has been experiencing increased anxiety lately and has trouble sleeping at night due to his anxiety [facility] Medical History Overweight (BMI 25.0-29.9) Non-ST elevation [place] (NSTEMI) (~06/2023) History of COVID-19 Vitamin D deficiency Depression Insomnia Renal stone Obesity (BMI 30-39.9) Benign essential hypertension Hypertension Surgical History Hx of colonoscopy Hx of lithotripsy History of inguinal hernia repair Family History Mother Hypertension Father Hypertension Social History Housing: House Alcohol intake: never Patient Tobacco Use Status: Never used Tobacco Second Hand Smoke Exposure: No service: No Current occupational status: employed Current occupation: maintenance Cognitive needs: No Hearing needs: No Vision needs: No Questionnaire PHQ-9 Over the last 2 weeks, how often have you been bothered by any of the following problems? 1. Little interest or pleasure in doing things: not at all 2. Feeling down, depressed, or hopeless: not at all 3. Trouble falling or staying asleep, or sleeping too much: not at all 4. Feeling tired or having little energy: not at all 5. Poor appetite or overeating: not at all 6. Feeling bad about yourself - or that you are a failure or have let yourself or your family down: not at all 7. Trouble concentrating on things, such as reading the newspaper or watching television: not at all 8. Moving or speaking so slowly that other people could have noticed. Or the opposite - being so fidgety or restless that you have been moving around a lot more than usual: not at all 9. Thoughts that you would be better off or of hurting yourself in some way: not at all Total score: 0 Depression Screening Interpretation: Negative Depression Screening Done: Yes 17355 - PHQ-9 Billing: Yes Source: Developed by Drs. Christofer Beltre, Latha Colorado, Morgan Llanes and colleagues, with an educational saqib from [employer]. Thrive Questionnaire Date Thrive assessed: 01/25/24 I am a: Patient What is your living situation today?: I have a steady place to live Within the past 12 months, did the food you bought not last and you didn't have the money to get more?: Never true Within the past 12 months, did you worry whether your food would run out before you got money to buy more?: Never true Do you have trouble paying for medicines?: No Do you have trouble getting transportation to medical appointments?: No Do you have trouble paying your heating and electricity bill?: No Do you have trouble taking care of your child, family member or friend?: No Do you have trouble with day-to-day activities such as bathing, preparing meals, shopping, managing finances, etc.?: No Are you currently unemployed and looking for a job?: No Are you interested in more education?: No Please select the resources that you would like help with: None Currently or been in a relationship where the following occur: no concerns reported THRIVE Score: 0 AUDIT C Alcohol Use Questionnaire (AUDIT-C) 1. How often do you have a drink containing alcohol?: Never 3. How often do you have six or more drinks on one occasion?: Never Total Score: 0 Score Reviewed/Action Taken: Yes JAKE-7 AMB Questionnaire JAKE-7 Date JAKE - 7 assessed: 01/25/24 Feeling nervous, anxious, or on edge: 3 = Nearly every day Not being able to stop or control worryin = Nearly every day Worrying too much about different things: 1 = Several days Trouble relaxin = Several days Being so restless that it is hard to sit still: 0 = Not at all Becoming easily annoyed or irritable: 0 = Not at all Feeling afraid as if something awful might happen: 0 = Not at all Total JAKE-7 score (0-4 normal; 5-9 mild; 10-14 moderate; 15-21 severe): 8 Source: Developed by Drs. Christofer Beltre, Latha Colorado, Morgan Llanes and colleagues, with an educational saqib from [employer]. Review of Systems Const Denies chills, Reports difficulty sleeping (Rx help), Denies fatigue, Denies fever(s), Denies headache(s) and Denies weakness ENT Denies dysphagia, Denies dizziness, Denies otalgia, Denies headache(s), Denies neck pain, Denies odynophagia and Denies sore throat Card Denies chest pain, Denies rapid heart rate, Denies irregular heart rhythm, Denies palpitations and Denies dyspnea Resp Denies chest congestion, Denies cough, Denies dyspnea and Denies wheezing GI Denies abdominal pain, Denies constipation, Denies dysphagia, Denies heartburn, Denies diarrhea, Denies nausea, Denies odynophagia and Denies vomiting Denies hematuria, Denies difficulty urinating, Denies dysuria and Denies urinary frequency Musc Denies back pain, Denies arthralgias and Denies neck pain Skin/Breast Denies rash Neuro Denies dizziness, Denies headache(s), Denies paresthesias and Denies weakness Psych Reports anxiety Endo Denies fatigue and Denies palpitations Aller/Immun Denies wheezing Physical exam (Primary Care) Vital Signs: Last Vital Signs Pulse 92 01/25/24 10:35 BP 122/80 01/25/24 10:35 Pulse Ox 98 01/25/24 10:35 Oxygen Delivery Method Room Air 01/25/24 10:35 BMI result Body Mass Index 27.3 Tobacco/Smoking Status: Tobacco use Status Tobacco use date assessed 01/25/24 01/25/24 10:36 Patient Tobacco Use Status Never used Tobacco 01/25/24 10:36 PHQ-9: PHQ-9 Score PHQ-9: Total score 0 01/25/24 10:48 Depression Screening Interpretation: Negative Thrive Assessment: Date of Thrive Assessment Date Thrive assessed 01/25/24 01/25/24 10:36 Currently or been in a relationship where the following occur: no concerns reported Const General: no acute distress and alert HENMT Ears: TM's normal bilaterally and EAC's normal Throat: Yes posterior oropharynx normal and Yes tonsils normal (no TP congestion) Neck Neck: Yes no lymphadenopathy and Yes supple Thyroid: Thyroid normal Resp Auscultation: clear to auscultation bilaterally, no rales and no wheezes Cardio Rate: regular rate Rhythm: regular rhythm Heart sounds: no murmurs GI Palpation (GI): Soft to palpation and nontender Auscultation: normal bowel sounds General: Yes no CVA tenderness Back/Spine/Pelvis Back: no CVA tenderness Skin Rashes: no rashes Extrem General: Yes no clubbing, cyanosis or edema Results Reviewed Results Reviewed: Laboratory Tests 11/15/23 11/15/23 07:38 07:40 WBC 7.3 Hgb 16.1 Hct 45.8 Plt Count 256 Sodium 140 Potassium 2.9 L* Creatinine 0.84 Estimated GFR > 60 Fasting Glucose 83 Calcium 9.5 AST 26 ALT 27 Triglycerides 72 Cholesterol 180 LDL Cholesterol, Calc 116 H HDL Cholesterol 50 25-OH Vitamin D Total 21.8 L TSH 0.94 Ur Specific [place] 1.020 Urine Protein Negative Urine Glucose (UA) Negative Urine Blood Negative Urine Nitrite Negative Ur Leukocyte Esterase Trace H Assessment and Plan Assessment & Plan (1) Non-ST elevation [place] (NSTEMI): Onset Date: ~06/2023 Comment: cardiac cath done at [facility] revealed [place]A; TTE revealed preserved EF with no wall motion abnormalities Code(s): I21.4 - Non-ST elevation (NSTEMI) myocardial infarction Plan: [place] Event occurred in June 2023 when patient was reportedly working out at the gym and he has been out of his BP med for 5 days at the time Coronary angiography done at [facility] revealed no hemodynamically significant lesion and TTE showed preserved EF with no wall motion abnormalities Continue Aspirin 81 mg QD and Lisinopril 2.5 mg QD He was not started on beta blockers at the time due to bradycardia Continue risk factor modification and optimization of cholesterol levels and BP control Continue Atorvastatin 40 mg QD Will recheck his labs and fasting lipids in 3 months for follow up Follow up with [facility] Cardiology as scheduled (2) Benign essential hypertension: Code(s): I10 - Essential (primary) hypertension Plan: Reinforced low sodium diet - goal is systolic BP of 120 mm or less Continue Chlorthalidone 50 mg QD (3) Vitamin D deficiency: Code(s): E55.9 - Vitamin D deficiency, unspecified Plan: Advised that his Vitamin D level was low on his labs done a couple of months ago and he should continue on his Vitamin D3 2000 units QD, which was started back then Will recheck his Vitamin D level in 3 months for follow up (4) Hypokalemia: Code(s): E87.6 - Hypokalemia Plan: Continue Potassium Chloride ER 10 meq QD for now Will have him recheck his serum potassium level [facility] for follow up Advised that we will contact him again as soon as we have his repeat potassium level and we will then determine if he should continue on potassium supplements or not (5) Insomnia: Code(s): G47.00 - Insomnia, unspecified Qualifiers: Insomnia type: unspecified Qualified Code(s): G47.00 - Insomnia, unspecified Plan: Sleep hygiene reinforced Continue Trazodone 50 mg Q HS PRN (6) Depression: Code(s): F32.A - Depression, unspecified Qualifiers: Depression Type: unspecified Qualified Code(s): F32.A - Depression, unspecified Plan: Patient declined offer to start him on Rx last time Per request, he was referred for counseling and to see psychiatry but he is still waiting for appt (7) Anxiety: Code(s): F41.9 - Anxiety disorder, unspecified Plan: He is now also requesting for counseling for his increasing anxiety lately - will refer him again to [facility] (8) Overweight (BMI 25.0-29.9): Code(s): E66.3 - Overweight Plan: Reinforced diet/exercise as tolerated/lose weight Plan Follow up in 3 months Orders: Orders Comprehensive Met. Panel Today E87.6 - Hypokalemia Complete Blood Count Auto Diff 3 Months D64.9 - Anemia, unspecified Comprehensive [place]. Panel Fast 3 Months E78.00 - Pure hypercholesterolemia, unspecified Lipid Panel 3 Months E78.00 - Pure hypercholesterolemia, unspecified TSH reflex Free T4 3 Months E78.00 - Pure hypercholesterolemia, unspecified UA CC w/rflx Micro + Cult 3 Months R30.0 - Dysuria Vitamin D 25-OH Total 3 Months E55.9 - Vitamin D deficiency, unspecified Referrals Psychiatry Referral F41.9 - Anxiety disorder, unspecified Coding Level of Care Code Est Pt Level 4 (04102) Diagnoses Non-ST elevation [place] (NSTEMI) I21.4 Benign essential hypertension I10 Vitamin D deficiency E55.9 Hypokalemia E87.6 Insomnia, unspecified type G47.00 Insomnia type: unspecified Depression, unspecified depression type F32.A Depression Type: unspecified Anxiety F41.9 Overweight (BMI 25.0-29.9) E66.3
== END 2024-01-25 11:33 | disposition home or self-care (01) ==
PROVIDERS: Visit Provider Internal Medicine
DX: I25.2 Old myocardial infarction (principal); I10 Essential (primary) hypertension; E55.9 Vitamin D deficiency, unspecified; E87.6 Hypokalemia; G47.00 Insomnia, unspecified; F32.A Depression, unspecified; F41.9 Anxiety disorder, unspecified; E66.3 Overweight
CPT/HCPCS: 99214

== ENCOUNTER 2024-07-11 07:28 | Outpatient (REF) | payer OTHER, SELFPAY ==
[2024-07-11 11:09] LABS: Appearance Urine Clear; Color Urine Yellow; Glucose Urine UA Negative (Negative); Leukocyte Esterase Urine Negative (Negative); Nitrite Urine Negative (Negative); Specific Gravity - Urine 1.015 (1.005-1.025); Urine Blood Negative (Negative); Urine Ketones Negative (Negative); Urine Protein Negative (Neg-Trace)
[2024-07-11 11:15] LABS: MANUAL DIFF FLAG NO
[2024-07-11 11:18] LABS: Basophils Absolute Auto 0.1 X10*3/uL (0.0-0.2); Basophils Percent Auto 0.8 % (0-2); Eosinophils Absolute Auto 0.3 X10*3/uL (0.0-0.4); Eosinophils Percent Auto 4.1 % (0-4); Hematocrit 45.9 % (42.0-52.0); Hemoglobin 16.2 g/dl (14.0-18.0); Imm Gran Abs Auto 0.02 X10*3/uL (0.00-0.03); Imm Gran Pct Auto 0.3 % (0.0-0.4); Lymphocytes Absolute Auto 2.2 X10*3/uL (1.2-4.9); Lymphocytes Percent Auto 29.2 % (20-40); Mean Corpuscular HGB Conc 35.3 g/dl (31.0-36.0); Mean Corpuscular Hemoglobin 30.1 pg (27.0-33.0); Mean Corpuscular Volume 85.2 fL (80.0-98.0); Mean Platelet Volume 10.5 fL (9.4-12.4); Monocytes Absolute Auto 0.7 X10*3/uL (0.1-1.2); Monocytes Percent Auto 9.6 % (2-11); Neutrophils Absolute Auto 4.1 x10*3/uL (2.0-8.3); Platelet Count 274 X10*3/uL (160-400); Red Blood Count 5.39 X10*6/uL (4.60-5.80); White Blood Count 7.4 X10*3/uL (4.8-10.8)
[2024-07-11 11:56] LABS: TSH reflex Free T4 1.26 uIU/mL (0.32-4.0); Vitamin D 25-OH Total 45.3 ng/mL (>30)
[2024-07-11 12:01] LABS: Alanine Aminotransferase 34 U/L (0-40); Albumin Level 4.2 g/dL (3.5-5.0); Alkaline Phosphatase 50 U/L (39-117); Anion Gap 8 (12-20); Aspartate Amino Transferase 33 U/L (5-37); Blood Urea Nitrogen 18 mg/dL (9-16); Calcium 9.6 mg/dL (8.4-10.2); Carbon Dioxide 32 mmol/L (22-29); Chloride 100 mmol/L (96-108); Cholesterol 195 mg/dL (<200); Estimated Glomerular Filt Rate > 60; Glucose Fasting 84 mg/dL (60-99); HDL Cholesterol 56 mg/dL (>40); LDL Cholesterol Calculated 127 mg/dL (<100); Potassium 2.6 mmol/L (3.3-5.1); Sodium 137 mmol/L (135-145); Total Protein 7.3 g/dL (6.5-8.0); Triglycerides 64 mg/dL (<150)
== END 2024-07-11 07:29 | disposition home or self-care (01) ==
LOC: HO.10HDL 07:28
PROVIDERS: Visit Provider Internal Medicine
DX: D64.9 Anemia, unspecified (principal); R30.0 Dysuria; E55.9 Vitamin D deficiency, unspecified; E78.00 Pure hypercholesterolemia, unspecified
CPT/HCPCS: 36415; 80053; 80061; 81003; 82306; 84443; 85025

== ENCOUNTER 2024-07-17 09:50 | Outpatient (AMB) | payer OTHER, SELFPAY ==
[2024-07-17 10:01] VITALS: BP 128/80; PULSE 90; O2SAT 98; BMI 26.9
--- NOTE | 2024-07-17 10:01 | MHC.PC.OV ---
Vital Signs 07/17/24 10:01 Height 5 ft 7 in Weight 172 lb BMI 26.9 BP 128/80 Blood Pressure Location Lt brachial Position Sitting Pulse 90 Pulse Source Pulse Oximeter Pulse Oximetry (%) 98 Oxygen Delivery Method Room Air Intake Visit Reasons: CAD, hyperlipidemia, anxiety Tobacco Sample Puller Required: No Accompanied by: Self / Same As Patient Allergies No Known Allergies [No Known Allergies*] Allergy (Verified 07/17/24 10:47) Medication List - Last Reconciled 07/17/24 by Harry Cooper MD aspirin 81 mg PO DAILY 90 days atorvastatin 40 mg PO DAILY 90 days chlorthalidone 50 mg PO QAM 90 days cholecalciferol (vitamin D3) 50 mcg PO DAILY 90 days lisinopril 2.5 mg PO DAILY 90 days potassium chloride ER 10 mEq PO DAILY trazodone 50 mg PO BEDTIME PRN Tobacco use date assessed: 07/17/24 Dental Screening Dental Screen Date: 07/17/24 Did you have a dental visit in the last 12 months?: No Did you have a dental problem in the last 6 months where you did not have access to dental care?: No Was dental information given to patient?: No HPI CAD, hyperlipidemia, anxiety HPI Details Patient comes in today for his follow up visit States that he currently feels okay but is still experiencing a lot of anxiety and would like to be referred again for therapy and counseling - feels like his brain won't shut down, especially at night States that he was not able to start these after his last visit in January 2024 [place] He denies any headaches or dizziness Denies any chest pains, no SOB No nausea/vomiting, no abdominal pain No change in bowel habits noted He had his follow up labs done last week - to discuss his results [facility] Medical History (Updated 07/17/24 @ 12:12 by Harry Cooper MD) Non-ST elevation AL (NSTEMI) (~06/2023) Overweight (BMI 25.0-29.9) History of COVID-19 Vitamin D deficiency Depression Insomnia Renal stone Obesity (BMI 30-39.9) Benign essential hypertension Hypertension Surgical History Hx of cardiac catheterization Hx of colonoscopy Hx of lithotripsy History of inguinal hernia repair Family History Mother Hypertension Father Hypertension Social History Housing: House Alcohol intake: never Patient Tobacco Use Status: Never used Tobacco Second Hand Smoke Exposure: No service: No Current occupational status: employed Current occupation: maintenance Cognitive needs: No Hearing needs: No Vision needs: No Questionnaire PHQ-9 Over the last 2 weeks, how often have you been bothered by any of the following problems? 1. Little interest or pleasure in doing things: not at all 2. Feeling down, depressed, or hopeless: not at all 3. Trouble falling or staying asleep, or sleeping too much: not at all 4. Feeling tired or having little energy: not at all 5. Poor appetite or overeating: not at all 6. Feeling bad about yourself - or that you are a failure or have let yourself or your family down: not at all 7. Trouble concentrating on things, such as reading the newspaper or watching television: not at all 8. Moving or speaking so slowly that other people could have noticed. Or the opposite - being so fidgety or restless that you have been moving around a lot more than usual: not at all 9. Thoughts that you would be better off or of hurting yourself in some way: not at all Total score: 0 Depression Screening Interpretation: Negative Depression Screening Done: Yes 32292 - PHQ-9 Billing: Yes Source: Developed by Drs. Christofer Beltre, Latha Colorado, Morgan Llanes and colleagues, with an educational saqib from [employer]. Thrive Questionnaire Date Thrive assessed: 07/17/24 I am a: Patient What is your living situation today?: I have a steady place to live Within the past 12 months, did the food you bought not last and you didn't have the money to get more?: Never true Within the past 12 months, did you worry whether your food would run out before you got money to buy more?: Never true Do you have trouble paying for medicines?: No Do you have trouble getting transportation to medical appointments?: No Do you have trouble paying your heating and electricity bill?: No Do you have trouble taking care of your child, family member or friend?: No Do you have trouble with day-to-day activities such as bathing, preparing meals, shopping, managing finances, etc.?: No Are you currently unemployed and looking for a job?: No Are you interested in more education?: No Please select the resources that you would like help with: None Currently or been in a relationship where the following occur: No concerns reported THRIVE Score: 0 AUDIT C Alcohol Use Questionnaire (AUDIT-C) 1. How often do you have a drink containing alcohol?: Never 3. How often do you have six or more drinks on one occasion?: Never Total Score: 0 Score Reviewed/Action Taken: Yes JAKE-7 AMB Questionnaire JAKE-7 Date JAKE - 7 assessed: 07/17/24 Feeling nervous, anxious, or on edge: 3 = Nearly every day Not being able to stop or control worryin = Nearly every day Worrying too much about different things: 1 = Several days Trouble relaxin = Several days Being so restless that it is hard to sit still: 0 = Not at all Becoming easily annoyed or irritable: 0 = Not at all Feeling afraid as if something awful might happen: 0 = Not at all Total JAKE-7 score (0-4 normal; 5-9 mild; 10-14 moderate; 15-21 severe): 8 Source: Developed by Drs. Christofer Beltre, Latha Colorado, Morgan Llanes and colleagues, with an educational saqib from [employer]. Review of Systems Const Denies chills, Reports difficulty sleeping (Rx help), Denies fatigue, Denies fever(s) and Denies headache(s) ENT Denies dysphagia, Denies dizziness, Denies otalgia, Denies headache(s), Denies neck pain, Denies odynophagia and Denies sore throat Card Denies chest pain, Denies rapid heart rate, Denies irregular heart rhythm, Denies palpitations and Denies dyspnea Resp Denies chest congestion, Denies cough and Denies dyspnea GI Denies abdominal pain, Denies constipation, Denies dysphagia, Denies heartburn, Denies diarrhea, Denies nausea, Denies odynophagia and Denies vomiting Denies hematuria, Denies difficulty urinating, Denies dysuria and Denies urinary frequency Musc Denies back pain, Denies arthralgias and Denies neck pain Skin/Breast Denies rash Neuro Denies dizziness, Denies headache(s) and Denies paresthesias Psych Reports anxiety Endo Denies fatigue and Denies palpitations Physical exam (Primary Care) Vital Signs: Last Vital Signs Pulse 90 07/17/24 10:01 BP 128/80 07/17/24 10:01 Pulse Ox 98 07/17/24 10:01 Oxygen Delivery Method Room Air 07/17/24 10:01 BMI result Body Mass Index 26.9 Tobacco/Smoking Status: Tobacco use Status Tobacco use date assessed 07/17/24 07/17/24 10:02 Patient Tobacco Use Status Never used Tobacco 07/17/24 10:02 PHQ-9: PHQ-9 Score PHQ-9: Total score 0 07/17/24 10:09 Depression Screening Interpretation: Negative Thrive Assessment: Date of Thrive Assessment Date Thrive assessed 07/17/24 07/17/24 10:02 Currently or been in a relationship where the following occur: No concerns reported Const General: no acute distress and alert HENMT Ears: TM's normal bilaterally and EAC's normal Throat: Yes posterior oropharynx normal and Yes tonsils normal (no TP congestion) Neck Neck: Yes no lymphadenopathy and Yes supple Thyroid: Thyroid normal Resp Auscultation: clear to auscultation bilaterally, no rales and no wheezes Cardio Rate: regular rate Rhythm: regular rhythm Heart sounds: no murmurs GI Palpation (GI): Soft to palpation and nontender Auscultation: normal bowel sounds General: Yes no CVA tenderness Back/Spine/Pelvis Back: no CVA tenderness Skin Rashes: no rashes Extrem General: Yes no clubbing, cyanosis or edema Office Procedures Flu Questionnaire Does the patient have a severe egg allergy?: No Immunizations Fluarix Triv [id number] (PF) 45 mcg (15 mcg x 3)/0.5 mL IM syringe Performing Provider: Harry Cooper MD [place] [facility] [place] [facility] Documented (not given) by: FELICITAS Herrmann on 07/17/24 10:09 Reason Not Given: Patient Refused Results Reviewed Results Reviewed: Laboratory Tests 11/15/23 07/11/24 07:38 07:30 WBC 7.4 Hgb 16.2 Hct 45.9 Plt Count 274 Sodium 137 Potassium 2.6 L* Creatinine 0.89 Estimated GFR > 60 Fasting Glucose 84 Calcium 9.6 AST 33 ALT 34 Triglycerides 64 Cholesterol 180 195 LDL Cholesterol, Calc 116 H 127 H HDL Cholesterol 56 25-OH Vitamin D Total 45.3 TSH 1.26 Ur Specific [place] 1.015 Urine Protein Negative Urine Glucose (UA) Negative Urine Blood Negative Urine Nitrite Negative Ur Leukocyte Esterase Negative Coding Level of Care Code Est Pt Level 4 (82837) Diagnoses Non-ST elevation AL (NSTEMI) I21.4 Benign essential hypertension I10 Hypokalemia E87.6 Vitamin D deficiency E55.9 Insomnia, unspecified type G47.00 Insomnia type: unspecified Anxiety F41.9 Depression, unspecified depression type F32.A Depression Type: unspecified Overweight (BMI 25.0-29.9) E66.3 Assessment & Plan Assessment & Plan (1) Non-ST elevation AL (NSTEMI): Onset Date: ~06/2023 Comment: cardiac cath done at [facility] revealed MINOCA; TTE revealed preserved EF with no wall motion abnormalities Code(s): I21.4 - Non-ST elevation (NSTEMI) myocardial infarction Category: Medical Plan: [place]A (myocardial infarction with non-obstructive coronary arteries) Event occurred in June 2023 when patient was reportedly working out at the gym and he was out of his BP med for 5 days at the time Coronary angiography done at [facility] (06/22/2023) revealed no hemodynamically significant lesions and TTE showed preserved EF with no wall motion abnormalities Continue Aspirin 81 mg QD and Lisinopril 2.5 mg QD He was not started on beta blockers at the time due to bradycardia Continue risk factor modification and optimization of cholesterol levels and BP control Results of his labs done last week reviewed and discussed with patient - he is cautioned that his total and LDL cholesterol have been steadily increasing over the past year Patient states that he was concentrating on staying on a low carb diet and eating a lot of meat over the past few months Have advised him that he still need to stay on a low cholesterol diet IN ADDITION to his low carb diet Continue Atorvastatin 40 mg QD Will recheck his labs and fasting lipids in 4 months for follow up - have advised him that if his total and LDL cholesterol numbers do not improve significantly over the next few months, then we will likely have to go up on his Atorvastatin dose to 80 mg QD Follow up with [facility] Cardiology as scheduled (2) Benign essential hypertension: Code(s): I10 - Essential (primary) hypertension Category: Medical Plan: Reinforced low sodium diet - goal is systolic BP of 120 mm or less Continue Chlorthalidone 50 mg QD and Lisinopril 2.5 mg QD (3) Hypokalemia: Code(s): E87.6 - Hypokalemia Category: Medical Plan: He is advised that his serum potassium level is again low on his recent labs and is likely due to the effects of his diuretic (Chlorthalidone) Will increase his Klor-Con to 20 get QD today (4) Vitamin D deficiency: Code(s): E55.9 - Vitamin D deficiency, unspecified Category: Medical Plan: Continue Vitamin D3 2000 units QD (5) Insomnia: Code(s): G47.00 - Insomnia, unspecified Category: Medical Qualifiers: Insomnia type: unspecified Qualified Code(s): G47.00 - Insomnia, unspecified Plan: Sleep hygiene reinforced Continue Trazodone 50 mg Q HS PRN (6) Anxiety: Code(s): F41.9 - Anxiety disorder, unspecified Category: Medical Plan: He was referred to [facility] for therapy and counseling a few months ago but states that he could not get this started as [place], but would now like to try getting this started again Referral to [facility] placed again (7) Depression: Code(s): F32.A - Depression, unspecified Category: Medical Qualifiers: Depression Type: unspecified Qualified Code(s): F32.A - Depression, unspecified Plan: Patient still declines offer to start him on Rx for his depression and anxiety - would like to try therapy first Per request, he was referred again to [facility] for counseling and to see psychiatry at some point (8) Overweight (BMI 25.0-29.9): Code(s): E66.3 - Overweight Category: Medical Plan: Reinforced diet/exercise as tolerated/lose weight Plan Patient declined flu vaccine today Follow up in 4 months Orders: Orders Influenza [id number] Immunization Today Z23 - Encounter for immunization Comprehensive [place]. Panel Fast 4 Months E78.00 - Pure hypercholesterolemia, unspecified Lipid Panel 4 Months E78.00 - Pure hypercholesterolemia, unspecified Magnesium 4 Months E83.42 - Hypomagnesemia Complete Blood Count Auto Diff 4 Months D64.9 - Anemia, unspecified Referrals Psychiatry Referral F41.9 - Anxiety disorder, unspecified Medications: New potassium chloride ER (Klor-Con M) 20 mEq PO DAILY 30 days 30 tabs 3RF hypokalemia E87.6 - Hypokalemia Discontinued potassium chloride ER Discontinued Reason: Duplicate 10 mEq PO DAILY 30 caps 1RF
== END 2024-07-17 10:51 | disposition home or self-care (01) ==
PROVIDERS: PCP Internal Medicine; Visit Provider Internal Medicine
DX: I21.4 Non-ST elevation (NSTEMI) myocardial infarction (principal); I10 Essential (primary) hypertension; E87.6 Hypokalemia; E55.9 Vitamin D deficiency, unspecified; G47.00 Insomnia, unspecified; F41.9 Anxiety disorder, unspecified; F32.A Depression, unspecified; E66.3 Overweight; Z23 Encounter for immunization

== ENCOUNTER → 2024-07-17 09:50 | Outpatient (BNVA) | payer OTHER, SELFPAY | PROVIDERS: PCP Internal Medicine; Visit Provider Internal Medicine | DX: I10 Essential (primary) hypertension (principal); E87.6 Hypokalemia; E55.9 Vitamin D deficiency, unspecified; G47.00 Insomnia, unspecified; F41.9 Anxiety disorder, unspecified; F32.A Depression, unspecified; E66.3 Overweight; I25.2 Old myocardial infarction; Z79.82 Long term (current) use of aspirin; Z79.899 Other long term (current) drug therapy; Z28.21 Immunization not carried out because of patient refusal | CPT/HCPCS: 90471; 96127 ==

== ENCOUNTER 2025-02-05 07:54 | Outpatient (REF) | payer OTHER, SELFPAY ==
[2025-02-05 09:51] LABS: MANUAL DIFF FLAG NO
[2025-02-05 10:02] LABS: Basophils Absolute Auto 0.1 X10*3/uL (0.0-0.2); Basophils Percent Auto 0.8 % (0-2); Eosinophils Absolute Auto 0.4 X10*3/uL (0.0-0.4); Eosinophils Percent Auto 4.9 % (0-4); Hematocrit 47.6 % (42.0-52.0); Hemoglobin 16.7 g/dl (14.0-18.0); Imm Gran Abs Auto 0.02 X10*3/uL (0.00-0.03); Imm Gran Pct Auto 0.3 % (0.0-0.4); Lymphocytes Absolute Auto 2.6 X10*3/uL (1.2-4.9); Lymphocytes Percent Auto 35.9 % (20-40); Mean Corpuscular HGB Conc 35.1 g/dl (31.0-36.0); Mean Corpuscular Hemoglobin 29.8 pg (27.0-33.0); Mean Platelet Volume 10.4 fL (9.4-12.4); Monocytes Absolute Auto 0.7 X10*3/uL (0.1-1.2); Monocytes Percent Auto 9.8 % (2-11); Neutrophils Absolute Auto 3.4 x10*3/uL (2.0-8.3); Neutrophils Percent Auto 48.3 % (45-73); Platelet Count 268 X10*3/uL (160-400); Red Cell Distribution Width 12.9 % (11.0-16.0); White Blood Count 7.1 X10*3/uL (4.8-10.8)
[2025-02-05 11:48] LABS: Alanine Aminotransferase 50 U/L (0-40); Albumin Level 4.4 g/dL (3.5-5.0); Alkaline Phosphatase 53 U/L (39-117); Anion Gap 10 (12-20); Aspartate Amino Transferase 36 U/L (5-37); Bilirubin Total 0.8 mg/dL (0.0-1.0); Blood Urea Nitrogen 21 mg/dL (9-16); Calcium 9.9 mg/dL (8.4-10.2); Carbon Dioxide 33 mmol/L (22-29); Chloride 99 mmol/L (96-108); Cholesterol 213 mg/dL (<200); Estimated Glomerular Filt Rate > 60; Glucose Fasting 87 mg/dL (60-99); HDL Cholesterol 56 mg/dL (>40); LDL Cholesterol Calculated 145 mg/dL (<100); Magnesium 2.1 mg/dL (1.6-2.6); Sodium 139 mmol/L (135-145); Total Protein 7.5 g/dL (6.5-8.0); Triglycerides 63 mg/dL (<150)
[2025-02-05 11:49] LABS: Potassium 2.7 mmol/L (3.3-5.1)
== END 2025-02-05 07:55 | disposition home or self-care (01) ==
LOC: HO.10HDL 07:54
PROVIDERS: Visit Provider Internal Medicine
DX: E78.00 Pure hypercholesterolemia, unspecified (principal); D64.9 Anemia, unspecified; E83.42 Hypomagnesemia
CPT/HCPCS: 36415; 80053; 80061; 83735; 85025

== ENCOUNTER 2025-02-06 15:39 | Outpatient (REF) | payer OTHER, SELFPAY ==
--- NOTE | ~2025-02-06 | US_ITS ---
EXAMINATION: US KIDNEY BILATERAL HISTORY: N20.0 - Calculus of kidney TECHNIQUE: Real-time grayscale ultrasound imaging of the kidneys was performed and images were reviewed. COMPARISON: Comparison is made with the prior examination dated 10/10/2023. FINDINGS: Right kidney: The right kidney measures 11.4 x 6.3 x 6.2 cm. Renal parenchymal echotexture and thickness are normal. There is a 7 mm cyst in the interpolar region. There are nonobstructing calculi in the midportion of the kidney measuring 2 and 4 mm. There is no hydronephrosis. Left Kidney: The left kidney measures 10.7 x 6.5 x 4.0 cm. Renal parenchymal echotexture and thickness are normal. There are no masses. There is a nonobstructing calculus at the upper pole measuring 4 mm in size. There is an echogenic focus at the upper pole which may represent an additional calculus. There is no hydronephrosis. US/US renal BI IMPRESSION: Bilateral nephrolithiasis as described. No hydronephrosis Electronically signed by: Christofer Escoto MD 02/07/2025 03:05 PM EDT
== END 2025-02-06 15:40 | disposition home or self-care (01) ==
LOC: HO.US 15:39
PROVIDERS: Visit Provider Urology
DX: N20.0 Calculus of kidney (principal)
CPT/HCPCS: 76775

== ENCOUNTER → 2025-02-06 15:42 | Outpatient (BNV) | payer OTHER, SELFPAY | PROVIDERS: Visit Provider Radiology Diagnostic Radiology | DX: N20.0 Calculus of kidney (principal) | CPT/HCPCS: 76775 ==

== ENCOUNTER 2025-02-14 14:42 | Outpatient (AMB) | payer OTHER, SELFPAY ==
--- NOTE | 2025-02-14 14:43 | A.OFFPC_ITS ---
Vital Signs 02/14/25 14:46 Height 5 ft 7 in Weight 177 lb 6 oz BMI 27.8 BP 136/90 H Blood Pressure Location Lt brachial Position Sitting Pulse 109 H Pulse Source Pulse Oximeter Pulse Oximetry (%) 96 Oxygen Delivery Method Room Air Intake Visit Reasons: 4 Months f/u Engagement Director Required: No Accompanied by: Self / Same As Patient Allergies No Known Allergies [No Known Allergies*] Allergy (Verified 02/14/25 15:05) Medication List - Last Reconciled 02/14/25 by Harry Cooper MD aspirin 81 mg PO DAILY 90 days atorvastatin 40 mg PO DAILY 90 days chlorthalidone 50 mg PO QAM 90 days cholecalciferol (vitamin D3) 50 mcg PO DAILY 90 days lisinopril 2.5 mg PO DAILY 90 days potassium chloride ER (Klor-Con M) 20 mEq PO DAILY 30 days trazodone 50 mg PO BEDTIME PRN Tobacco use date assessed: 02/14/25 Dental Screening Dental Screen Date: 02/14/25 Did you have a dental visit in the last 12 months?: No Did you have a dental problem in the last 6 months where you did not have access to dental care?: No Was dental information given to patient?: No HPI 4 Months f/u HPI Details Patient comes in today for his follow up visit States that he feels okay He denies any headaches or dizziness Denies any chest pains, no SOB No nausea/vomiting, no abdominal pain No change in bowel habits noted He had his follow up labs done last week - to discuss his results [facility] Medical History Non-ST elevation [place] (NSTEMI) (~06/2023) Overweight (BMI 25.0-29.9) History of COVID-19 Vitamin D deficiency Depression Insomnia Renal stone Obesity (BMI 30-39.9) Benign essential hypertension Hypertension Surgical History Hx of cardiac catheterization Hx of colonoscopy Hx of lithotripsy History of inguinal hernia repair Family History Mother Hypertension Father Hypertension Social History Housing: House Alcohol intake: never Patient Tobacco Use Status: Never used Tobacco e-Cigarette/Vaping Use: Never Used Second Hand Smoke Exposure: No service: No Current occupational status: employed Current occupation: maintenance Cognitive needs: No Hearing needs: No Vision needs: No Questionnaire PHQ-9 Over the last 2 weeks, how often have you been bothered by any of the following problems? 1. Little interest or pleasure in doing things: not at all 2. Feeling down, depressed, or hopeless: not at all 3. Trouble falling or staying asleep, or sleeping too much: not at all 4. Feeling tired or having little energy: not at all 5. Poor appetite or overeating: not at all 6. Feeling bad about yourself - or that you are a failure or have let yourself or your family down: not at all 7. Trouble concentrating on things, such as reading the newspaper or watching television: not at all 8. Moving or speaking so slowly that other people could have noticed. Or the opposite - being so fidgety or restless that you have been moving around a lot more than usual: not at all 9. Thoughts that you would be better off or of hurting yourself in some way: not at all Total score: 0 Depression Screening Interpretation: Negative Depression Screening Done: Yes 34101 - PHQ-9 Billing: Yes Source: Developed by Drs. Christofer Beltre, Latha Colorado, Morgan Llanes and colleagues, with an educational saqib from [employer]. Thrive Questionnaire Date Thrive assessed: 02/14/25 I am a: Parent/Caregiver What is your living situation today?: I have a steady place to live Within the past 12 months, did the food you bought not last and you didn't have the money to get more?: I choose not to answer this question Within the past 12 months, did you worry whether your food would run out before you got money to buy more?: I choose not to answer this question Do you have trouble paying for medicines?: No Do you have trouble getting transportation to medical appointments?: No Do you have trouble paying your heating and electricity bill?: No Do you have trouble taking care of your child, family member or friend?: No Do you have trouble with day-to-day activities such as bathing, preparing meals, shopping, managing finances, etc.?: No Are you currently unemployed and looking for a job?: No Are you interested in more education?: Yes Please select the resources that you would like help with: None Currently or been in a relationship where the following occur: I choose not to answer THRIVE Score: 0 AUDIT C Alcohol Use Questionnaire (AUDIT-C) 1. How often do you have a drink containing alcohol?: Never 3. How often do you have six or more drinks on one occasion?: Never Total Score: 0 Score Reviewed/Action Taken: Yes JAKE-7 AMB Questionnaire JAKE-7 Date JAKE - 7 assessed: 02/14/25 Feeling nervous, anxious, or on edge: 0 = Not at all Not being able to stop or control worryin = Not at all Worrying too much about different things: 0 = Not at all Trouble relaxin = Not at all Being so restless that it is hard to sit still: 0 = Not at all Becoming easily annoyed or irritable: 0 = Not at all Feeling afraid as if something awful might happen: 0 = Not at all Total JAKE-7 score (0-4 normal; 5-9 mild; 10-14 moderate; 15-21 severe): 0 Source: Developed by Drs. Christofer Beltre, Latha Colorado, Morgan Llanes and colleagues, with an educational saqib from [employer]. Review of Systems Const Denies chills, Reports difficulty sleeping (Rx help), Denies fatigue, Denies fever(s) and Denies headache(s) ENT Denies dysphagia, Denies dizziness, Denies otalgia, Denies headache(s), Denies neck pain, Denies odynophagia and Denies sore throat Card Denies chest pain, Denies rapid heart rate, Denies irregular heart rhythm, Denies palpitations and Denies dyspnea Resp Denies chest congestion, Denies cough and Denies dyspnea GI Denies abdominal pain, Denies constipation, Denies dysphagia, Denies heartburn, Denies diarrhea, Denies nausea, Denies odynophagia and Denies vomiting Denies difficulty urinating, Denies dysuria and Denies urinary frequency Musc Denies back pain, Denies arthralgias and Denies neck pain Skin/Breast Denies rash Neuro Denies dizziness, Denies headache(s) and Denies paresthesias Psych Reports anxiety Endo Denies fatigue and Denies palpitations Physical exam (Primary Care) Vital Signs: Last Vital Signs Pulse 109 H 02/14/25 14:46 BP 136/90 H 02/14/25 14:46 Pulse Ox 96 02/14/25 14:46 Oxygen Delivery Method Room Air 02/14/25 14:46 BMI result Body Mass Index 27.8 Tobacco/Smoking Status: Tobacco use Status Tobacco use date assessed 02/14/25 02/14/25 14:52 Patient Tobacco Use Status Never used Tobacco 02/14/25 14:45 e-Cigarette/Vaping Use Never Used 02/14/25 14:52 PHQ-9: PHQ-9 Score PHQ-9: Total score 0 02/14/25 15:06 Depression Screening Interpretation: Negative Thrive Assessment: Date of Thrive Assessment Date Thrive assessed 02/14/25 02/14/25 14:52 Currently or been in a relationship where the following occur: I choose not to answer Const General: no acute distress and alert HENMT Ears: TM's normal bilaterally and EAC's normal Throat: Yes posterior oropharynx normal and Yes tonsils normal (no TP congestion) Neck Neck: Yes no lymphadenopathy and Yes supple Thyroid: Thyroid normal Resp Auscultation: clear to auscultation bilaterally, no rales and no wheezes Cardio Rate: regular rate Rhythm: regular rhythm Heart sounds: no murmurs GI Palpation (GI): Soft to palpation and nontender Auscultation: normal bowel sounds General: Yes no CVA tenderness Back/Spine/Pelvis Back: no CVA tenderness Skin Rashes: no rashes Extrem General: Yes no clubbing, cyanosis or edema Results Reviewed Results Reviewed: Laboratory Tests 02/05/25 07:57 WBC 7.1 Hgb 16.7 Hct 47.6 Plt Count 268 Sodium 139 Potassium 2.7 L* Creatinine 0.89 Estimated GFR > 60 Fasting Glucose 87 Calcium 9.9 Magnesium 2.1 AST 36 ALT 50 H Triglycerides 63 Cholesterol 213 H LDL Cholesterol, Calc 145 H HDL Cholesterol 56 Coding Level of Care Code Est Pt Level 4 (75002) Complex EM visit Add On G2211 Diagnoses Non-ST elevation [place] (NSTEMI) I21.4 Benign essential hypertension I10 Hypokalemia E87.6 Vitamin D deficiency E55.9 Insomnia, unspecified type G47.00 Insomnia type: unspecified Anxiety F41.9 Depression, unspecified depression type F32.A Depression Type: unspecified Overweight (BMI 25.0-29.9) E66.3 Additional Codes PHQ-9 - 17368 - PHQ-9 Billing: Yes ([id number]) Assessment & Plan Assessment & Plan (1) Non-ST elevation [place] (NSTEMI): Onset Date: ~06/2023 Comment: cardiac cath done at [facility] revealed MINOCA; TTE revealed preserved EF with no wall motion abnormalities Code(s): I21.4 - Non-ST elevation (NSTEMI) myocardial infarction Category: Medical Plan: MINOCA (myocardial infarction with non-obstructive coronary arteries) Event occurred in June 2023 when patient was reportedly working out at the gym and he was out of his BP med (Rx ran out) for 5 days at the time Coronary angiography done at [facility] (06/22/2023) revealed no hemodynamically significant lesions and TTE showed preserved EF with no wall motion abnormalities Continue Aspirin 81 mg QD and Lisinopril 2.5 mg QD He was not started on beta blockers at the time due to bradycardia Continue risk factor modification and optimization of cholesterol levels and BP control Results of his labs done last week reviewed and discussed with patient - he is cautioned that his total and LDL cholesterol have again increased from previous Patient now admitted that he has not been taking his cholesterol medication in a while now as he was hoping to be able to control his cholesterol with just diet modification Reinforced low cholesterol diet but have advised him that he should go back on Atorvastatin, to which he agreed Will start him back on Atorvastatin 40 mg QD Will recheck his labs and fasting lipids in 4 months for follow up Follow up with [facility] Cardiology as scheduled (2) Benign essential hypertension: Code(s): I10 - Essential (primary) hypertension Category: Medical Plan: Reinforced low sodium diet - goal is systolic BP of 120 mm or less Continue Chlorthalidone 50 mg QD and Lisinopril 2.5 mg QD (3) Hypokalemia: Code(s): E87.6 - Hypokalemia Category: Medical Plan: He is advised that his serum potassium level is again low on his recent labs and is likely due to the effects of his diuretic (Chlorthalidone) Continue Klor-Con 20 get QD (4) Vitamin D deficiency: Code(s): E55.9 - Vitamin D deficiency, unspecified Category: Medical Plan: Continue Vitamin D3 2000 units QD (5) Insomnia: Code(s): G47.00 - Insomnia, unspecified Category: Medical Qualifiers: Insomnia type: unspecified Qualified Code(s): G47.00 - Insomnia, unspecified Plan: Sleep hygiene reinforced Continue Trazodone 50 mg Q HS PRN (6) Anxiety: Code(s): F41.9 - Anxiety disorder, unspecified Category: Medical Plan: Follow up with [facility] for therapy and counseling as scheduled (7) Depression: Code(s): F32.A - Depression, unspecified Category: Medical Qualifiers: Depression Type: unspecified Qualified Code(s): F32.A - Depression, unspecified Plan: Patient still declines offer to start him on Rx for his depression and anxiety - would like to continue with therapy for now (8) Overweight (BMI 25.0-29.9): Code(s): E66.3 - Overweight Category: Medical Plan: Reinforced diet/exercise as tolerated/lose weight Plan Follow up in 4 months Orders: Orders Complete Blood Count Auto Diff 4 Months D64.9 - Anemia, unspecified Lipid Panel 4 Months E78.00 - Pure hypercholesterolemia, unspecified Magnesium 4 Months E83.42 - Hypomagnesemia UA CC w/rflx Micro + Cult 4 Months R30.0 - Dysuria Comprehensive [place]. Panel Fast 4 Months E78.00 - Pure hypercholesterolemia, unspecified TSH reflex Free T4 4 Months E78.00 - Pure hypercholesterolemia, unspecified Vitamin D 25-OH Total 4 Months E55.9 - Vitamin D deficiency, unspecified Medications: Refilled atorvastatin 40 mg PO DAILY 90 days 90 tabs 1RF
[2025-02-14 14:46] VITALS: BP 136/90; PULSE 109; O2SAT 96; BMI 27.8
== END 2025-02-14 15:13 | disposition home or self-care (01) ==
LOC: HO.HMCH 14:42
PROVIDERS: PCP Internal Medicine; Visit Provider Internal Medicine
DX: I25.2 Old myocardial infarction (principal); I10 Essential (primary) hypertension; E87.6 Hypokalemia; E55.9 Vitamin D deficiency, unspecified; G47.00 Insomnia, unspecified; F41.9 Anxiety disorder, unspecified; F32.A Depression, unspecified; E66.3 Overweight

== ENCOUNTER → 2025-02-14 14:42 | Outpatient (BNVA) | payer OTHER, SELFPAY | PROVIDERS: PCP Internal Medicine; Visit Provider Internal Medicine | DX: I10 Essential (primary) hypertension (principal); E87.6 Hypokalemia; E55.9 Vitamin D deficiency, unspecified; G47.00 Insomnia, unspecified; F41.9 Anxiety disorder, unspecified; F32.A Depression, unspecified; E66.3 Overweight; Z68.27 Body mass index [BMI] 27.0-27.9, adult; I25.2 Old myocardial infarction; Z79.82 Long term (current) use of aspirin; Z79.899 Other long term (current) drug therapy | CPT/HCPCS: 96127 ==